=== PATIENT | female | born 1955 | race African-American/Black ===

== ENCOUNTER 2019-03-09 22:00 | Inpatient (IN) ==
[2019-03-09] MEDS ORDERED: ASPIRIN PO ONE (22:19)
[2019-03-09 22:53] LABS: BASO# 0.04 X1000 (0.0-0.2); BASO% 0.9 % (0.0-0.8); EOS# 0.03 X1000 (0.0-0.7); EOS% 0.7 % (0.0-10.0); HEMATOCRIT 35.7 % (37.0-47.0); HEMOGLOBIN 10.3 g/dL (12.0-16.0); LYMPH# 0.62 X1000 (1.2-3.4); LYMPH% 14.4 % (20.5-51.1); MCH 25.7 PG (27-31); MCHC 28.9 g/dL (33-37); MONO# 0.59 X1000 (0.11-0.59); MONO% 13.7 % (1.7-9.3); MPV 10.7 FL (7.4-10.4); NEUT# 3.04 X1000 (1.4-6.5); NEUT% 70.3 % (42.2-75.2); PLT 357 X1000 (130-400); RBC 4.01 XMIL (4.2-5.4); RDW 20.8 % (11.5-14.5); WBC 4.32 X1000 (4.8-10.8)
[2019-03-09 22:58] LABS: INR 1.13; PROTIME 15.4 Seconds (11.0-16.0)
[2019-03-09 22:59] LABS: PTT 30.6 Seconds (22.3-41.8)
[2019-03-09 23:10] LABS: ALBUMIN 3.9 g/dL (3.5-5.0); CALCIUM 8.8 mg/dL (8.8-10.2); CREATININE 1.3 mg/dL (0.5-0.9); POTASSIUM 4.2 mmol/L (3.5-5.1); TOTAL BILIRUBIN 3.04 mg/dL (0.20-1.00); TOTAL PROTEIN 7.7 g/dL (6.3-8.3)
[2019-03-10] MEDS ORDERED: HEPARIN IV ONE (00:20)
--- NOTE | 2019-03-10 04:18 | PROVIDER DOCUMENTATION ---
This chart was entered by Erik Cintron Scribe, acting as scribe for Trey Odom MD. HPI-Respiratory General - General Chief Complaint: Shortness of Breath Stated Complaint: CHF/SOB Time Seen by Provider: 03/09/19 22:30 Source: patient Allergies/Adverse Reactions: Patient Allergies Allergy/AdvReac Type Severity Reaction Status Date / Time levofloxacin [From Levaquin] Allergy Mild ITCHING Verified 03/10/19 01:23 Home Medications: Home Medication List Medication Instructions Recorded Confirmed Last Taken Type Albuterol 2.5MG/Ipratrop 0.5MG 3 ml INH Q4H PRN PRN 03/10/19 03/10/19 03/09/19 History [Duoneb] Amiodarone [Cordarone] 200 mg PO DAILY 03/10/19 03/10/19 03/09/19 History Levothyroxine [Synthroid] 75 microgm PO DAILY 03/10/19 03/10/19 03/09/19 History Metolazone 5 mg PO DAILY 03/10/19 03/10/19 03/08/19 History Potassium Chloride 20 meq PO DIRECTED PRN PRN 03/10/19 03/10/19 1 Week Ago History ~03/03/19 Torsemide 100 mg PO DAILY 03/10/19 03/10/19 03/08/19 History Trazodone [Desyrel] 25 mg PO HS PRN PRN 03/10/19 03/10/19 03/07/19 History - History of Present Illness-Resp Nature of Presenting Problem: Pt is a 63 y/o F presents to the ED with SOB and weakness. She says she cant walk from her bedroom to the bathroom. Pt says the SOB worsened today. She reports a hx of CHF. Pt denies CHF. Severity in ED: reports: severe Onset/Duration: reports: 24 hours ago Timing: reports: still present, getting worse Cough Quality/Degree: reports: no cough Current Respiratory Medication Therapy: Initiated none Modifying Factors: improves with: exertion Associated Symptoms: reports: shortness of breath. denies: cough, fever/chills, headache, muscle/bodyaches, wheezing Similar Symptoms Previously?: No Recently seen or treated by another doctor?: No Review of Systems - Adult - REVIEW OF SYSTEMS - ADULT Constitutional: reports: other (weakness). denies: chills, fever Eyes: reports: no symptoms reported Ears, Nose, Mouth & Throat: denies: ear pain, throat pain Cardiovascular: denies: chest pain, edema Respiratory: reports: shortness of breath. denies: cough, wheezing Gastrointestinal: denies: abdominal pain, nausea, vomiting Genitourinary: denies: dysuria, discharge Musculoskeletal: denies: back pain, neck pain Integumentary: reports: no symptoms reported Neurological: denies: dizziness/vertigo, headache/migraines, slurred speech, syncope Psychiatric: reports: no symptoms reported Endocrine: reports: no symptoms reported Hematologic/Lymphatic: reports: no symptoms reported Allergic/Immunologic: reports: no symptoms reported All Other Systems: Reviewed and Negative Past History - Adult - PAST MEDICAL HISTORY-ADULT Review of Records: reports: Old Records Reviewed, Nursing Assessment Review, Medications Reviewed Major Childhood Illnesses: reports: denies history Cardiovascular: reports: A-Fib, CHF, HTN Respiratory: reports: COPD, sleep apnea Gastrointestinal: reports: denies history Obstetrical/Gynecological: reports: denies history Genitourinary: reports: denies history Musculoskeletal: reports: denies history Neurological: reports: denies history Psychiatric: reports: anxiety Endocrine/Immune: reports: Diabetes Other Conditions: reports: denies history - PRIOR SURGERIES/PROCEDURES Surgical/Procedure History: reports: - IMMUNIZATION STATUS Childhood Immunizations: See Nurse Assessment Flu Vaccine: See Nurse Assessment - FAMILY HISTORY Family History: reviewed, not pertinent - SOCIAL HISTORY Smoking: non-smoker, greater than 1 pack/day Substance Use: none/never Living Situation: family Physical Exam-General - PHYSICAL EXAM-ADULT Initial Vital Signs Reviewed: Yes - CONSTITUTIONAL General Appearance: negative: appears well (ill in appearance) - EYES Eyes: PERRL/EOMI, pink conjunctivae - HEAD, EARS, NOSE, MOUTH & THROAT HENMT: moist mucous membranes, normal ENT inspection, pharynx normal - NECK Neck: full range of motion. negative: normal inspection (JVD) - RESPIRATORY Respiratory: lungs clear, normal breath sounds, no pleuratic chest pain, no respiratory distress, no accessory muscle use - CARDIOVASCULAR Cardiovascular: normal peripheral pulses, tachycardia - GASTROINTESTINAL (ABDOMEN) Abdominal Exam: normal bowel sounds, non tender, soft - MUSCULOSKELETAL Back Exam: no CVA tenderness, no vertebral tenderness Extremity: pedal edema (3+). negative: normal inspection (bilateral lower extremioty change in color) - SKIN Integumentary: normal color, normal turgor, warm/dry - NEUROLOGIC Neurologic: grossly normal, no motor/sensory deficits - PSYCHIATRIC Psych/Mental Status: normal mood/affect, normal thought content, normal thought process, oriented x 3 - HEART Score HEART Score: History: Highly Suspicious HEART Score: ECG: Significant ST-Deviation HEART Score: Age: 45-65 Years HEART Score: Risk Factors for Atherosclerotic Disease: 1 or 2 Risk Factors HEART Score: Troponin: < or = Normal Limit Total HEART Score:: 6 Progress - PLAN OF CARE/RESULTS Progress/Plan/Lab Results: Vital Signs - 8 hr 03/09/19 22:11 03/10/19 00:11 03/10/19 00:14 Temperature 98.1 F Pulse Rate 117 H 116 H Respiratory Rate 22 20 Blood Pressure 96/67 114/87 O2 Sat by Pulse Oximetry 91 L 88 L 95 03/10/19 00:20 03/10/19 00:30 03/10/19 00:33 Temperature Pulse Rate 116 H 116 H 116 H Respiratory Rate 19 28 H 27 H Blood Pressure 101/74 O2 Sat by Pulse Oximetry 94 L 94 L 94 L 03/10/19 00:40 03/10/19 00:50 03/10/19 01:00 Temperature Pulse Rate 117 H 116 H 115 H Respiratory Rate 21 21 25 H Blood Pressure O2 Sat by Pulse Oximetry 94 L 94 L 95 03/10/19 01:02 03/10/19 01:10 03/10/19 01:15 Temperature Pulse Rate 114 H 115 H 115 H Respiratory Rate 13 25 H 16 Blood Pressure 96/76 96/76 O2 Sat by Pulse Oximetry 95 95 95 03/10/19 01:20 03/10/19 01:30 03/10/19 01:32 Temperature Pulse Rate 115 H 116 H 115 H Respiratory Rate 19 34 H 19 Blood Pressure 106/81 O2 Sat by Pulse Oximetry 95 95 94 L 03/10/19 01:40 03/10/19 01:50 03/10/19 02:00 Temperature Pulse Rate 115 H 115 H 115 H Respiratory Rate 30 H 22 19 Blood Pressure O2 Sat by Pulse Oximetry 94 L 96 94 L 03/10/19 02:02 03/10/19 02:10 03/10/19 02:20 Temperature Pulse Rate 115 H 115 H 114 H Respiratory Rate 28 H 29 H 35 H Blood Pressure 102/87 O2 Sat by Pulse Oximetry 95 93 L 88 L 03/10/19 02:31 03/10/19 02:32 03/10/19 02:40 Temperature Pulse Rate 115 H 115 H 115 H Respiratory Rate 26 H 21 30 H Blood Pressure 112/84 O2 Sat by Pulse Oximetry 83 L 92 L 96 03/10/19 02:50 03/10/19 03:00 03/10/19 03:03 Temperature Pulse Rate 115 H 116 H 115 H Respiratory Rate 28 H 24 28 H Blood Pressure 114/78 O2 Sat by Pulse Oximetry 95 92 L 90 L 03/10/19 03:10 Temperature Pulse Rate 116 H Respiratory Rate 21 Blood Pressure O2 Sat by Pulse Oximetry 97 Laboratory Results - last 24 hr 03/09/19 03/09/19 03/09/19 22:36 22:36 22:36 WBC 4.32 L RBC 4.01 L Hgb 10.3 L Hct 35.7 L MCV 89.0 MCH 25.7 L MCHC 28.9 L RDW Std Deviation 20.8 H Plt Count 357 MPV 10.7 H Neut % (Auto) 70.3 Lymph % (Auto) 14.4 L [place] % (Auto) 13.7 H Eos % (Auto) 0.7 Baso % (Auto) 0.9 H Neut # (Auto) 3.04 Lymph # (Auto) 0.62 L [place] # (Auto) 0.59 Eos # (Auto) 0.03 Baso # (Auto) 0.04 PT INR PTT (Actin FS) Sodium 140 Potassium 4.2 Chloride 97 L Carbon Dioxide 29 Anion Gap 14 BUN 40 H Creatinine 1.3 H Estimated GFR/1.73 m2 50 BUN/Creatinine Ratio 31 Glucose 148 H Calculated Osmolality 292 Calcium 8.8 Total Bilirubin 3.04 H AST 13 ALT 9 L Alkaline Phosphatase 212 H Creatine Kinase 46 Troponin T Tyi-D-Xbaxehwlnww Pept 2678 H Total Protein 7.7 Albumin 3.9 Globulin 3.8 Albumin/Globulin Ratio 1.0 03/09/19 03/09/19 22:36 22:36 WBC RBC Hgb Hct MCV MCH MCHC RDW Std Deviation Plt Count MPV Neut % (Auto) Lymph % (Auto) [place] % (Auto) Eos % (Auto) Baso % (Auto) Neut # (Auto) Lymph # (Auto) [place] # (Auto) Eos # (Auto) Baso # (Auto) PT 15.4 INR 1.13 PTT (Actin FS) 30.6 Sodium Potassium Chloride Carbon Dioxide Anion Gap BUN Creatinine Estimated GFR/1.73 m2 BUN/Creatinine Ratio Glucose Calculated Osmolality Calcium Total Bilirubin AST ALT Alkaline Phosphatase Creatine Kinase Troponin T 0.029 Hvl-L-Eadfevjyoaa Pept Total Protein Albumin Globulin Albumin/Globulin Ratio Orders Category Date Time Status Cardiac Monitoring DIRECTED Care 03/09/19 22:20 Active Oxygen Therapy- ED Nursing DIRECTED Care 03/09/19 22:20 Active Saline Loc NOW Care 03/09/19 22:20 Active CHEST-PORTABLE [RAD] Stat Exams 03/09/19 22:34 Taken CBC WITH ELECTRONIC DIFF [HEME] Stat Lab 03/09/19 22:36 Completed CK PROFILE [SP CHEM] Stat Lab 03/09/19 22:36 Completed COMPREHENSIVE METABOLIC PANEL [CHEM] Stat Lab 03/09/19 22:36 Completed PRO B-NATRIURETIC PEPTIDE Stat Lab 03/09/19 22:36 Completed PROTIME WITH INR [COAG] Stat Lab 03/09/19 22:36 Completed PTT [COAG] Stat Lab 03/09/19 22:36 Completed TROPONIN T Stat Lab 03/09/19 22:36 Completed URINALYSIS [URINALYSIS] Stat Lab 03/09/19 22:33 Uncollected Aspirin Med 03/09/19 22:19 Discontinued 325 mg PO NOW ONE Heparin Med 03/10/19 00:20 Discontinued 5,000 unit IV NOW ONE CP/SOB/Palp >45 yrs of Age Stat Oth 03/09/19 22:19 Ordered EKG [EKG] Stat Ther 03/09/19 22:20 Ordered EKG [EKG] Stat Ther 03/09/19 22:33 Ordered Result Diagrams: 03/09/19 22:36 03/09/19 22:36 - EKG 1 Time of EKG reading by physician:: 22:23 EKG Read and Signed by:: Trey Odom EKG Interpretation (*Must complete 3 of following elements*): Abnormal Rate: 117 Rhythm: A-flutter with 2:1 AV conduction QRS: other (Low voltage QRS) Comments: Prolonged QT - Acute PR/STEMI - CONSULTS/PCP/HOSPITALIST Notification #1 *Consult/PCP/Hospitalist*: [facility] Time Discussed: 22:37 Reason/Comments: Transfer for Acute PR Consult Disposition: other ([facility]) #2 Consult: [facility] Time Discussed: 22:57 Consult Disposition: other (Reports No STEMI and reports work patient up there and call them if needed.) #3 Consult: Dr Coleman Time Discussed: 04:17 Consult Disposition: Will see in ED, Admit Departure - Departure Date of Disposition Decision: 03/10/19 Time of Disposition Decision: 04:16 DIAGNOSIS: CHF exacerbation Disposition: ADMITTED INPATIENT 09 Certified Medical Emergency: Emergent Condition: Fair - Critical Care Note This patient required my direct & personal management of CC.: No Attestation - Physician/ RASHAWN Attestation Patient care was provided by Advanced Practice Provider:: No The physician spent face to face time with patient:: Yes Advanced Practice Provider documentation review:: Supervising physician onsite and consulted in the evaluation and care of this patient. The physician did have a face to face encounter with the patient. This chart was documented by the indicated scribe, (Erik Cintron Scribe) and accurately reflects the services I performed and decisions made by me, Trey Odom MD, as attested by the provider's signature.
[2019-03-10] MEDS ORDERED: LASIX IV ONE (05:02)
--- NOTE | 2019-03-10 06:24 | Diag Imaging Result Doc PS360 ---
CHEST-PORTABLE - 03/09/2019 INDICATION: cp COMPARISON: 01/15/2018 FINDINGS: There is severe cardiomegaly. There is mild pulmonary vascular congestion. There is some patchy bibasilar atelectasis. No significant infiltrates or edema. No large pleural effusion. IMPRESSION: Cardiomegaly and pulmonary vascular congestion. Patchy bibasilar atelectasis. Electronically signed by Gregory Wall 03/10/2019 6:22 AM
[2019-03-10 06:25] LABS: URINE SOURCE CATH
--- NOTE | 2019-03-10 06:33 | HISTORY AND PHYSICAL ---
PRIMARY CARE PROVIDER: None. ICE PLATFORM SUPERVISOR: Dr. Fox. CARE WORKER: Dr. Queen. CHIEF COMPLAINT: Shortness of breath. HISTORY OF PRESENT ILLNESS: Ms. Flores is a 63-year-old female, well known to our hospitalist service, who carries a past medical history of congestive heart failure, COPD on home O2, diabetes mellitus type 2, hypertension, atrial fibrillation, who reported to the ED after an acute onset of shortness of breath this afternoon, she was unable to make it from her bed to the bathroom. She had to be assisted inside from the front porch and she just laid across the bed. She states that she has gained weight, she does not know how much. She does have increase in her bilateral lower extremities, she states that they are swollen more than her usual. She states she normally has really skinny legs. She was positive for abdominal fullness. Positive for palpitations. She states she did not have any chest pain per se, but when this acute onset of shortness of breath came on, she felt like her chest would explode secondary to not being able to take in any air. She was brought into the ED by her family. Workup showed an elevated proBNP and acute kidney injury, slight elevation in troponin. I believe initially the ED called [facility]. However, they declined as patient was not a STEMI, and wanted her to continue treatment and workup. She was given 5000 unit bolus of insulin IV as well as full-dose aspirin. The patient is still remained short of breath and unable to speak in full sentences. She has bilateral rales in the bases. We will give her a dose of IV Lasix now, insert a Blackburn catheter, and admit her to [facility] for further evaluation and treatment. PAST MEDICAL HISTORY: 1. Congestive heart failure. 2. Diabetes type 2. 3. COPD on home O2 at 2 L. The patient does state at times she does have to go up to 3 L. 4. Hypertension. 5. Atrial fibrillation. PAST SURGICAL HISTORY: . FAMILY HISTORY: Congestive heart failure and diabetes. SOCIAL HISTORY: She lives at home. She has a daughter who stays with her. She uses a walker to get around. She denies any tobacco, alcohol, or illicit drug use. ALLERGIES: Levofloxacin, causes itching. HOME MEDICATIONS: 1. DuoNeb 3 mL inhaled q.4 hours p.r.n. 2. Amiodarone 200 mg p.o. daily. 3. Synthroid 75 mcg p.o. daily. 4. Metolazone 5 mg p.o. daily. 5. Potassium chloride 20 mEq p.o. as directed p.r.n. 6. Torsemide 100 mg p.o. daily. 7. Desyrel 25 mg p.o. at bedtime p.r.n.. REVIEW OF SYSTEMS: A 14-point review of systems completely negative except for those mentioned in HPI. She denies any cough, fever, chills, nausea, vomiting, or diarrhea, dizziness or syncopal episodes. PHYSICAL EXAMINATION: VITAL SIGNS: Temperature is 98.2 degrees, heart rate 112, respirations 19, blood pressure 115/87, O2 sat is 94% on 3 L nasal cannula. GENERAL: Ms. Flores is a pleasant, 63-year-old female who is lying on her left side in the stretcher, in no acute distress. However, when she started talking, she could not talk in full sentences for being short of breath. HEENT: Atraumatic, normocephalic. PERRL. NECK: Supple. Trachea midline. CARDIOVASCULAR: Irregularly irregular rhythm. S1, S2 appreciated. No murmurs, gallops, or rubs. RESPIRATORY: Lung sounds decreased in all lung parkinson. She does have fine crackles in the bases. ABDOMEN: Obese, soft, tender in the right upper quadrant upon palpation. EXTREMITIES: Trace pitting edema to bilateral lower extremities. SKIN: Warm, dry, and intact. DIAGNOSTIC DATA: Chest x-ray has not resulted, but does appear to have evidence of pulmonary edema as well as cardiomegaly. Still awaiting official over read. EKG showed atrial flutter 2:1 AV conduction. LABORATORY DATA: White count 4, hemoglobin and hematocrit 10 and 35, platelet count of 357,000. Sodium 140, potassium 4.2, BUN 40, creatinine 1.3. Blood glucose is 148, T bilirubin is 3.04, AST 13, ALT 9, alkaline phosphatase 212, CK 46, troponin 0.029. ProBNP is 2678. ASSESSMENT/PLAN: 1. Acute congestive heart failure exacerbation, probably systolic and diastolic in nature. She does have a history of pulmonary hypertension and sleep apnea, for which she follows Neurology. Will continue with gentle diuresis as the patient does have acute kidney injury. Continue to trend daily weights, in's and out's, O2 per protocol. Placed her on a 2 g sodium diet. Monitor on telemetry. Monitor electrolytes closely. 2. Mild elevation in troponin. We will continue to trend. The patient adamantly denies chest pain. 3. Acute kidney injury on probable chronic kidney disease. We will gently diurese her. Continue to trend her labs. 4. History of atrial fibrillation, atrial flutter. We will continue the patient on her amiodarone. Heparin for deep venous thrombosis prophylaxis. 5. Chronic obstructive pulmonary disease, on home O2. Did not appreciate any wheezes. 6. Hypertension. 7. Type 2 diabetes. Continue pattern blood sugars with sliding scale. Further recommendation to follow physician evaluation, laboratory and diagnostic data. Dictated by MO Lawrence for Michael Coleman MD I have perfomed a face to face diagnostic evaluation. Labs/ Xrays - reviewed. Exam- Chest- bibasilar rales. CV- regular A/P- CHF Exacerbation- Admit, gentle diuresis with lasix. Cardiology consult. Dr. Coleman cc: MD Radu Bustamante MD William D. Denney, MD [facility] HOSPITALRadha
[2019-03-10 07:05] LABS: BILIRUBIN URINE SMALL (NEGATIVE); BLOOD URINE NEGATIVE (NEGATIVE); COLOR YELLOW; GLUCOSE URINE NEGATIVE (NEGATIVE); KETONE URINE NEGATIVE (NEGATIVE); LEUKOCYTES URINE SMALL (NEGATIVE); NITRITE URINE NEGATIVE (NEGATIVE); PH URINE 5.5; PROTEIN URINE TRACE mg/dL (NEGATIVE); SP GRAVITY URINE 1.018; TURBIDITY URINE HAZY (CLEAR); UROBILINOGEN URINE 6 mg/dL (NORMAL)
--- NOTE | 2019-03-10 07:07 | EKG Report ---
Test Performed on : 03/10/2019 06:59:56 AM Test Reason : afib/flutter Blood Pressure : / mmHG Vent. Rate : 113 BPM Atrial Rate : 226 BPM P-R Int : 000 ms QRS Dur : 096 ms QT Int : 358 ms P-R-T Axes : 000 156 -06 degrees QTc Int : 491 ms Atrial flutter. with 2:1 AV conduction. Right axis deviation Low voltage QRS Cannot rule out Anteroseptal infarct (cited on or before 02-OCT-2017) Abnormal ECG When compared with ECG of 09-MAR-2019 22:23, (Unconfirmed) QRS axis shifted right Criteria for Inferior infarct are no longer present ST now depressed in Inferior leads ST no longer elevated in Anterior leads Confirmed by Travis HECTOR, Kali Rankin ([id number]) on 03/11/2019 8:46:10 AM
[2019-03-10 07:08] LABS: UR EPITHELIAL CELLS <10 /HPF (<10); URINE BACTERIA 3+ /HPF; URINE WBC <10 /HPF (<10)
--- NOTE | 2019-03-10 07:29 | EKG Report ---
Test Performed on : 03/09/2019 10:23:49 PM Test Reason : sob Blood Pressure : / mmHG Vent. Rate : 117 BPM Atrial Rate : 234 BPM P-R Int : 000 ms QRS Dur : 096 ms QT Int : 390 ms P-R-T Axes : 000 -03 075 degrees QTc Int : 544 ms Atrial flutter. with 2:1 AV conduction. Low voltage QRS Inferior infarct (cited on or before 19-OCT-2017) Cannot rule out Anteroseptal infarct (cited on or before 02-OCT-2017) Prolonged QT ACUTE OR / STEMI Abnormal ECG When compared with ECG of 16-JAN-2018 05:14, Significant changes have occurred Unconfirmed Result
[2019-03-10] MEDS: HUMALOG SUBQ SCH ×4 (07:41→20:37)
[2019-03-10 07:55] LABS: BASO# 0.06 X1000 (0.0-0.2); BASO% 1.1 % (0.0-0.8); EOS# 0.03 X1000 (0.0-0.7); EOS% 0.6 % (0.0-10.0); HEMATOCRIT 36.4 % (37.0-47.0); HEMOGLOBIN 10.4 g/dL (12.0-16.0); LYMPH# 0.99 X1000 (1.2-3.4); LYMPH% 18.8 % (20.5-51.1); MCH 25.2 PG (27-31); MCHC 28.6 g/dL (33-37); MCV 88.1 FL (81-99); MONO# 0.58 X1000 (0.11-0.59); MPV 10.8 FL (7.4-10.4); NEUT# 3.61 X1000 (1.4-6.5); NEUT% 68.5 % (42.2-75.2); PLT 375 X1000 (130-400); RBC 4.13 XMIL (4.2-5.4); RDW 20.9 % (11.5-14.5); WBC 5.27 X1000 (4.8-10.8)
--- NOTE | 2019-03-10 08:21 | Diag Imaging Result Doc PS360 ---
CHEST-PORTABLE - 03/10/2019 INDICATION: follow up COMPARISON: 03/09/2019 FINDINGS: Stable significant cardiomegaly. Stable pulmonary vascular congestion. Stable minimal atelectasis or infiltrate in the lung bases. IMPRESSION: No change from prior. Electronically signed by Gregory Wall 03/10/2019 8:19 AM
[2019-03-10] MEDS: CORDARONE PO SCH (08:36)
[2019-03-10] MEDS: PRILOSEC PO SCH (08:36)
[2019-03-10] MEDS: SYNTHROID PO SCH (08:36)
[2019-03-10] MEDS: ZAROXOLYN PO SCH (08:36)
[2019-03-10] MEDS: HEPARIN SUBQ SCH ×2 (08:36→20:37)
[2019-03-10 08:39] LABS: CALCIUM 8.7 mg/dL (8.8-10.2); CREATININE 1.3 mg/dL (0.5-0.9); MAGNESIUM 2.2 mg/dL (1.5-2.7); POTASSIUM 4.1 mmol/L (3.5-5.1)
[2019-03-10 08:49] LABS: T4 8.52 ug/dL (4.60-12.00)
[2019-03-10 08:55] LABS: TSH 5.8 uIUmL (0.27-4.20)
[2019-03-10] MEDS ORDERED: LASIX IV SCH (09:00)
[2019-03-10] MEDS: XANAX PO SCH ×2 (09:11→20:37)
--- NOTE | 2019-03-10 09:12 | PROGRESS NOTE ---
DATE: 03/10/2019 SUBJECTIVE: This patient is sitting in bed, and she is having shortness of breath. As per the patient, she really started feeling short of breath yesterday. She was admitted at least 3 times last year for this condition. She is following with Dr. Ruddy Maya as an outpatient. On the other hand, she feels anxious, and it looks like she is depressed as well. I will give her a really low dose of Xanax today to see if that helps. She wants to , but she does not have a plan or is suicidal. Probably once her condition resolves, I will ask Psychiatry to evaluate this patient because probably they need to see her as an outpatient or inpatient. OBJECTIVE: Vital Signs: Temperature 98 degrees, pulse 112, respiratory rate 16, blood pressure 108/79, oxygen saturation 96 on 4 L of nasal cannula. HEENT: Head normocephalic. No trauma. PERRLA. Neck: Supple. No JVD. No masses. Central trachea. Chest: Decreased breath sounds globally with some rales at the bases. Abdomen: Soft, mildly distended, mild generalized tenderness to palpation. Positive bowel sounds. Extremities: Trace edema. No clubbing, no cyanosis. Neurological: The patient is alert and oriented x3. No focal neurological deficits. Anxiety. LABORATORY DATA: WBC 5.2, hemoglobin 10.4, hematocrit 36.4, platelets 375,000. Sodium 141, potassium 4.1, chloride 100, bicarbonate 27, BUN 41, creatinine 1.3, glucose 139, calcium 8.7. Troponins negative x2. ASSESSMENT AND PLAN: 1. Combined congestive heart failure exacerbation, systolic and diastolic. She does have pulmonary hypertension and sleep apnea. We will continue with diuresis. She does have some mild kidney dysfunction. Continue with oxygen supplementation, low-salt diet. 2. Acute kidney injury on probably chronic kidney disease. We need to continue diuresing this patient gently. Will continue to monitor this patient closely. 3. History of atrial fibrillation/atrial flutter. We will continue with amiodarone, rate control. I am not sure why this patient is not on anticoagulation. Will put her on heparin subcutaneously for prophylaxis. I will wait for Cardiology recommendations. 4. Chronic obstructive pulmonary disease, on home oxygen. No wheezing today. Continue with breathing treatment as needed. 5. Hypertension. Continue to monitor. 6. Type 2 diabetes. Continue pattern of blood sugar and sliding scale insulin. 7. Anxiety and likely depression. I will add just a small dose of Xanax to this patient, 0.125 twice a day, to see how she does, and probably at the end of this hospitalization, once this patient is feeling better, I will get Psychiatry Department to evaluate this patient because probably she needs to be evaluated as an outpatient. cc: Shant Walls MD
[2019-03-10] MEDS: COZAAR PO SCH (11:06)
--- NOTE | 2019-03-10 11:27 | CARDIOLOGY CONSULTATION ---
DATE: 03/10/2019 CHIEF COMPLAINT ON PRESENTATION: Shortness of breath for around 2 days. HISTORY OF PRESENT ILLNESS: Ms. Flores is a 63-year-old black female with a history of systolic heart failure, last seen by Dr. Fox in July of 2018. She reports compliance with her medications. However, she apparently has had a history of poor compliance in the past. She has not had any heart racing. She denies any overt chest pain. She reports orthopnea, as well as lower extremity edema. She denies any specific sodium indiscretion. PAST MEDICAL HISTORY: 1. Significant for congestive heart failure. The last stress test I have on file was from October 2017, showing an EF of 43%. RV enlargement is demonstrated. No obvious ischemic changes on that study. Last echo in November of 2017 with an ejection fraction of around 40 to 45 percent. She did have evidence for a small PFO on that study. However, no shunt, suggesting it was very small. 2. Paroxysmal atrial fibrillation. Currently, the patient is on amiodarone. I do not see any specific under indications to anticoagulation, but it does not appear that she has ever been on this. 3. COPD on home oxygen therapy. 4. Hypertension. 5. Diabetes. 6. Hypothyroidism. 7. Sleep apnea. SOCIAL HISTORY: Lives at home. Daughter stays with her. She uses a walker for most ambulation. No current tobacco, alcohol or illicit drugs. FAMILY HISTORY: Significant for CHF, as well as diabetes. REVIEW OF SYSTEMS: A 10 system review of systems is negative, except for those things mentioned in the HPI. PHYSICAL EXAMINATION: Vital Signs: She is afebrile. Her most recent heart rate was 112. Blood pressure 108/79. We have very limited I and O data. General: Generally, she is in no acute distress. HEENT: Oropharynx is moist. Poor dentition. Eye examination is pink conjunctivae, white sclerae. Neck: Examination shows no obvious thyromegaly or thyroid tenderness. Cardiovascular: She sounds to be in a regular rate and rhythm. She has no obvious murmurs. She has no S3. She has 1+ bilateral lower extremity edema, and warm and well-perfused extremities. Chest: Her chest exam sounds clear to auscultation bilaterally, but she had poor effort. Abdomen: Soft, nontender. No obvious organomegaly. Skin: Exam is warm and dry throughout without any rashes. Neurological: She is moving all extremities well. She has no obvious lateralizing deficits. PERTINENT DATA: She had a chest x-ray performed on the thirtieth showing cardiomegaly and pulmonary vascular congestion. Repeat chest x-ray today shows essentially stable pulmonary vascular congestion. Her initial EKG on presentation has difficult to discern P-waves. She appeared to be in a relatively regular rhythm at around 117 beats per minute. There was a significant burden of artifact on this study suggestive of possible atrial flutter. That was reviewed by me. Followup EKG today at 0659 hours; this one seems more suggestive of atrial flutter based on the lead 3 characteristics. Rate was 113 beats per minute. Her laboratory data shows a white count of 5.2, hematocrit 36, platelet count of 375. Her sodium is 141, potassium 4.1, BUN 41, creatinine 1.3. Cardiac enzymes negative. ProBNP is 2678. ASSESSMENT: Ms. Flores is a 63-year-old black female with a history of atrial fibrillation/flutter, systolic heart failure. PLAN: We will continue to diurese the patient. I have added in a low dose of ARB. We will consider beta-rossana addition tomorrow. We will continue on amiodarone for the time being. We will likely consider adding an anticoagulation in the next couple of days. We will recheck an echo as one has not been done in quite some time on her. For now, we will continue with diuresis. cc: Sachin Maciel MD
[2019-03-10] MEDS: ZOFRAN IV PRN (15:05)
[2019-03-10] MEDS: LASIX IV SCH (17:11)
--- NOTE | 2019-03-10 23:11 | ECHO REPORT ---
ORDER DATE: 03/10/2019 SUMMARY: 1. Technically difficult study due to limited acoustic window quality. Intravenous echo contrast agent Optison was utilized to enhance endocardial definition. 2. Aortic valve was without evidence of structural abnormality and opens adequately on 2- dimensional images. Peak gradient across aortic valve is less than 10 mmHg. Mitral and tricuspid valves are without evidence of structural abnormality while pulmonic valve was not well demonstrated. There is mild mitral regurgitation and moderate tricuspid regurgitation. Estimated systolic PA pressure by Doppler is approximately 50 mmHg, suggesting moderate pulmonary hypertension. Aortic root is normal in size. 3. Moderate to severe left ventricular enlargement is demonstrated with normal wall thickness. Estimated left ejection fraction approximately 15 to 20 percent in the setting of severe global hypokinesis. There is some septal flattening demonstrated suggesting right ventricular pressure/volume overload. Left atrium is severely enlarged. The right atrium is severely enlarged. The right ventricle is severely enlarged with reduced right ventricular systolic function. 4. No pericardial effusion. 5. Appearance of inferior vena cava suggests elevated central venous pressure. cc: MD Marixa Barrera PA
[2019-03-11] MEDS: DUONEB (A & A) INH PRN ×3 (01:35→21:40)
[2019-03-11 06:16] LABS: CALCIUM 8.9 mg/dL (8.8-10.2); MAGNESIUM 2.4 mg/dL (1.5-2.7); POTASSIUM 4.4 mmol/L (3.5-5.1)
[2019-03-11] MEDS: LASIX IV SCH ×2 (06:24→17:15)
[2019-03-11] MEDS: HUMALOG SUBQ SCH ×4 (06:36→20:49)
--- NOTE | 2019-03-11 08:10 | EKG Report ---
Test Performed on : 03/11/2019 07:09:31 AM Test Reason : chf, dyspnea Blood Pressure : / mmHG Vent. Rate : 094 BPM Atrial Rate : 220 BPM P-R Int : 000 ms QRS Dur : 098 ms QT Int : 410 ms P-R-T Axes : 000 013 048 degrees QTc Int : 512 ms Atrial flutter. with variable AV block. Low voltage QRS Cannot rule out Anteroseptal infarct (cited on or before 02-OCT-2017) Prolonged QT Abnormal ECG When compared with ECG of 10-MAR-2019 06:59, (Unconfirmed) QRS axis shifted left ST no longer depressed in Inferior leads Nonspecific T wave abnormality has replaced inverted T waves in Inferior leads Confirmed by Travis HECTOR, Kali Rankin ([id number]) on 03/11/2019 8:47:12 AM
--- NOTE | 2019-03-11 09:19 | PROGRESS NOTE ---
DATE: 03/11/2019 SUBJECTIVE: The patient is sitting up in the chair at the bedside, eating breakfast. She states that she feels better than she has in quite some time. She also states that she has an appetite today. OBJECTIVE: Vital Signs: Blood pressure is 79/46 manually on the right arm, 76/42 manually on the left arm, heart rates are staying between 100 to 106, respirations are 18, temperature is 97.8 degrees, with O2 saturation of 93% to 94% on 4 L nasal cannula. Cardiovascular: Regular rate and rhythm. S1 and S2 appreciated. No obvious murmurs. Extremities: She does have some pretibial edema bilaterally. Calves are nontender to palpation bilaterally. Peripheral pulses are palpable, about 1+ to all 4 extremities. Pulmonary: Breath sounds are clear with no increased work of breathing noted. Chest rises and falls symmetrically with respiration. Gastrointestinal: Abdomen is soft, nontender, nondistended with bowel sounds in all 4 quadrants. Skin: Warm and dry with no rashes or lesions noted. Neurologic: She is alert and oriented x3. LABORATORY DATA: Sodium 139, potassium 4.4, BUN is 49, with a creatinine of 2, with blood sugars ranging in the 120 to 160 range. ASSESSMENT: 1. Combined congestive heart failure exacerbation, systolic and diastolic, along with pulmonary hypertension and sleep apnea. 2. Acute kidney injury on chronic kidney disease. 3. History of atrial fibrillation with atrial flutter. 4. Chronic obstructive pulmonary disease, on continuous oxygen. 5. Hypertension. 6. Diabetes type 2. 7. Hypotension. PLAN: Will continue with her current regimen with the exception that we will hold her Cozaar as well as her Zaroxolyn as her creatinine has increased and her blood pressures are lower, although the patient does state that she takes her blood pressures at home and she stated that the top number is usually between 82 and 89. Of note, her urine output has been around 200 mL over the last [address] Sacihn Maciel, Cardiology, and discuss medications. Dictated by MO Campos for Shant Walls MD cc: MO Campos MD
[2019-03-11] MEDS: XANAX PO SCH ×2 (09:24→20:47)
[2019-03-11] MEDS: PRILOSEC PO SCH (09:24)
[2019-03-11] MEDS: SYNTHROID PO SCH (09:24)
[2019-03-11] MEDS: HEPARIN SUBQ SCH ×2 (09:25→20:49)
[2019-03-11] MEDS: CORDARONE PO SCH (09:25)
[2019-03-11] MEDS: DOBUTAMINE 500/D5W 500 MG/250 ML IV.SOLN IV SCH (14:43)
[2019-03-11] MEDS ORDERED: LASIX IV ONE (15:17)
[2019-03-11] MEDS: ZAROXOLYN PO SCH (15:20)
--- NOTE | 2019-03-11 18:43 | Diag Imaging Result Doc PS360 ---
CHEST-PORTABLE - 03/11/2019 INDICATION: chf COMPARISON: 03/10/2019 FINDINGS: Stable significant cardiomegaly and pulmonary vascular congestion. Stable small nonspecific infiltrate in the right lung base. No new infiltrates. IMPRESSION: No change from prior. Electronically signed by Gregory Wall 03/11/2019 6:41 PM
[2019-03-11] MEDS: TYLENOL PO PRN (20:04)
[2019-03-12 06:02] LABS: CALCIUM 8.7 mg/dL (8.8-10.2); CREATININE 1.9 mg/dL (0.5-0.9); MAGNESIUM 2.4 mg/dL (1.5-2.7)
[2019-03-12] MEDS: LASIX IV SCH ×2 (06:08→17:51)
[2019-03-12] MEDS: HUMALOG SUBQ SCH ×4 (07:06→21:42)
--- NOTE | 2019-03-12 07:58 | Diag Imaging Result Doc PS360 ---
EXAM: CHEST-PORTABLE HISTORY: SOB TECHNIQUE: Chest single view COMPARISON: 03/11/2019 FINDINGS: Cardiomegaly remains. There is pulmonary edema and appears to be a small left pleural effusion with basilar atelectasis. Otherwise the lungs are well expanded. IMPRESSION: Cardiomegaly with pulmonary edema and no interval improvement. Electronically signed by Maged Bullard 03/12/2019 7:56 AM
[2019-03-12] MEDS: HEPARIN SUBQ SCH ×2 (08:59→21:42)
[2019-03-12] MEDS: SYNTHROID PO SCH (08:59)
[2019-03-12] MEDS: CORDARONE PO SCH (08:59)
[2019-03-12] MEDS: COZAAR PO SCH (08:59)
[2019-03-12] MEDS: ZAROXOLYN PO SCH (08:59)
[2019-03-12] MEDS: XANAX PO PRN ×2 (09:02→21:38)
[2019-03-12] MEDS: PRILOSEC PO SCH (09:02)
[2019-03-12] MEDS: DUONEB (A & A) INH PRN ×3 (09:52→19:38)
--- NOTE | 2019-03-12 09:55 | PROGRESS NOTE ---
DATE: 03/12/2019 SUBJECTIVE: This patient is lying in bed. She is really tired today. Her blood pressure has been low, sometimes in the 70s. As per the patient, her blood pressure at home has been around 80 sometimes. She has been placed on dobutamine by Cardiology Department. So far, we have 1.2 L of negative balance. X-ray showed pulmonary edema. No interval improvement and also cardiomegaly. We will continue with the same management. OBJECTIVE: Vital Signs: Temperature 98.8 degrees, pulse 84, respiratory rate 19, blood pressure 100/53, and oxygen saturation 91% on a Venturi mask. HEENT: Head normocephalic. No trauma. PERRLA. Neck: Supple. She does have JVD in central trachea. Chest: Decreased breath sounds globally with some rales and crepitus at the bases. Abdomen: Soft. Generalized tenderness to palpation. Positive bowel sounds. Nondistended. Extremities: Trace edema. No clubbing. No cyanosis. Neurological: The patient is alert and oriented x3. No focal deficits. LABORATORY: Sodium 138, potassium 4, chloride 96, bicarbonate 30, BUN 57, creatinine 1.9, glucose 123, calcium 8.7, and magnesium 2.4. ASSESSMENT AND PLAN: 1. Combined CHF exacerbation, systolic and diastolic. She also does have pulmonary hypertension and sleep apnea. We will continue with diuresis. She does have some acute kidney injury. She has been placed on dobutamine. Cardiology Department on board. Continue with oxygen supplementation. Low-salt diet. 2. Acute kidney injury. We need to continue to monitor. Creatinine around the same compared with yesterday, decreased a little bit from 2.0 to 1.9 with urine output of 1.7 L. Negative balance of 1.2. We will monitor this patient closely. 3. History of atrial fibrillation/atrial flutter. Continue with the same management for now. She is not on anticoagulation, but we are starting the possibility of putting this patient on that. I will continue following the Cardiology's recommendations. Apparently, she has been noncompliant with the medications. 4. COPD on home oxygen. No wheezing. Continue with breathing treatment as needed and oxygen supplementation. 5. Hypertension. Actually, this patient's blood pressure has been low. We held the losartan because of her kidney dysfunction. We will monitor. 6. Type 2 diabetes. Continue with pattern of blood sugar and sliding scale insulin. 7. Anxiety, probably depression. She is getting a small dose of Xanax around 0.1 25 twice a day as needed for anxiety. I will continue with the same treatment. cc: Shant Walls MD
[2019-03-12] MEDS: DOBUTAMINE 500/D5W 500 MG/250 ML IV.SOLN IV SCH (16:52)
--- NOTE | 2019-03-12 19:09 | CARDIOLOGY PROGRESS NOTE ---
DATE: 03/12/2019 SUBJECTIVE: Ms Florse reports she feels a little bit better. She does have some diffuse pain that is present. PHYSICAL: Afebrile. Heart rate 78, blood pressure 116/97. Her I's and O's appears to have been net negative. She is total out 2.1 L with 4 voids not measured.General: She is in no acute distress. Cardiovascular: She sounds to be in a regular rate and rhythm. She has no murmur, she has no S3. She has trace bilateral lower extremity edema with warm and well perfused extremities. Chest: Sounds reasonably clear to auscultation bilaterally. She has no increased work of breathing. Abdomen: Soft, nontender. PERTINENT DATA: Her lab data shows a sodium 138, potassium 4, BUN 57, creatinine is 1.9, mag level is 2.4. Her creatinine yesterday was 2.0, proBNP yesterday was 3551. ASSESSMENT: Ms. Flores is a 63-year-old female who presented with evidence for heart failure. Interim echocardiogram has demonstrated an ejection fraction of 15 to 20 percent. PLAN: She has been placed on dobutamine yesterday. She seems to be diuresing. Her renal function has improved somewhat. Her blood pressure is improved as well. We will continue on current medications for the time being rechecking labs in the morning. cc: Sachin Maciel MD
[2019-03-12] MEDS: TYLENOL PO PRN (22:18)
[2019-03-13] MEDS: DUONEB (A & A) INH PRN ×6 (03:22→23:45)
[2019-03-13] MEDS ORDERED: BLISTEX MEDICATED BERRY LIP BALM TOP PRN (04:20)
[2019-03-13] MEDS: HUMALOG SUBQ SCH ×4 (06:14→21:48)
[2019-03-13] MEDS: LASIX IV SCH ×2 (06:17→18:23)
[2019-03-13 06:18] LABS: BASO# 0.01 X1000 (0.0-0.2); BASO% 0.2 % (0.0-0.8); EOS# 0.04 X1000 (0.0-0.7); EOS% 0.7 % (0.0-10.0); HEMATOCRIT 32.9 % (37.0-47.0); HEMOGLOBIN 9.3 g/dL (12.0-16.0); LYMPH# 0.53 X1000 (1.2-3.4); LYMPH% 9.8 % (20.5-51.1); MCH 25.1 PG (27-31); MCHC 28.3 g/dL (33-37); MCV 88.9 FL (81-99); MONO# 0.67 X1000 (0.11-0.59); MONO% 12.4 % (1.7-9.3); NEUT# 4.17 X1000 (1.4-6.5); NEUT% 76.9 % (42.2-75.2); PLT 331 X1000 (130-400); WBC 5.42 X1000 (4.8-10.8)
[2019-03-13 06:53] LABS: CALCIUM 8.4 mg/dL (8.8-10.2); CREATININE 1.6 mg/dL (0.5-0.9); MAGNESIUM 2.3 mg/dL (1.5-2.7); POTASSIUM 3.8 mmol/L (3.5-5.1)
[2019-03-13 07:14] LABS: LYMPHS 12 % (21-51); MONO 10 % (1-9); SEGS 78 % (42-75)
[2019-03-13] MEDS: COZAAR PO SCH (08:39)
[2019-03-13] MEDS: SYNTHROID PO SCH (08:47)
[2019-03-13] MEDS: PRILOSEC PO SCH (08:47)
[2019-03-13] MEDS: ZAROXOLYN PO SCH (08:47)
[2019-03-13] MEDS: HEPARIN SUBQ SCH ×2 (08:47→21:35)
[2019-03-13] MEDS: CORDARONE PO SCH (08:47)
[2019-03-13] MEDS: XANAX PO PRN ×2 (08:53→21:36)
--- NOTE | 2019-03-13 09:01 | PROGRESS NOTE ---
DATE: 03/13/2019 SUBJECTIVE: The patient is lying comfortably in bed. She is feeling a bit a little bit better compared with yesterday. Cardiology Department following this patient closely. We will continue with same management. OBJECTIVE: Vital Signs: Temperature 98 degrees, pulse 99, respiratory rate 20, blood pressure 124/61, oxygen saturation 96 on a Venturi mask, 15%. HEENT: Head normocephalic. No trauma. PERRLA. Neck: Supple. She does have JVD central trachea. Chest: Decreased breath sounds globally with some rales and crepitus at the bases. Abdomen: Soft. Generalized tenderness to palpation, but positive bowel sounds. It is nondistended. Extremities: Trace edema. No clubbing, no cyanosis. Neurological examination: The patient is alert and oriented x3. Generalized weakness, but no focal deficits. LABORATORY: WBC 5.4, hemoglobin 9.3, hematocrit 32.9, platelets 331. Sodium 140, potassium 3.8, chloride 94, bicarbonate 36. BUN 55, creatinine 1.6, glucose 131, calcium 8.4. ProBNP 2625. ASSESSMENT AND PLAN: 1. Combined congestive heart failure exacerbation, systolic and diastolic. She also has pulmonary hypertension and sleep apnea. We will continue with diuresis. She does have some acute kidney injury, but is getting better. She has been placed on dobutamine. Cardiology Department on board and following this patient closely. 2. Acute kidney injury. We have a negative balance of 3 liters, BUN and creatinine trending down. We will continue to monitor. 3. History of atrial fibrillation/atrial flutter. Continue with same management for now. She is not on anticoagulation at this moment, due to noncompliance apparently. 4. Chronic obstructive pulmonary disease on home oxygen, no wheezing today. Continue breathing treatment as needed and oxygen supplementation. 5. Hypertension. Actually, her blood pressure has been running low. We held the losartan due to her kidney dysfunction. We will monitor. 6. Type 2 diabetes. Continue the same management. 7. Anxiety, probably depression. Continue with a small dose of Xanax twice a day as needed for anxiety. We will continue with same management. cc: Shant Walls MD
--- NOTE | 2019-03-13 11:28 | Diag Imaging Result Doc PS360 ---
EXAM: CHEST-PORTABLE HISTORY: dyspnea TECHNIQUE: Portable chest single view COMPARISON: 03/12/2019 FINDINGS: The lungs are well expanded. The heart is enlarged. The vessels are distended. There are no infiltrates. No effusion identified. IMPRESSION: Cardiomegaly with pulmonary edema Electronically signed by Maged Bullard 03/13/2019 11:25 AM
[2019-03-13] MEDS: TYLENOL PO PRN (21:35)
[2019-03-14] MEDS: DUONEB (A & A) INH PRN ×6 (03:49→23:17)
[2019-03-14] MEDS: TYLENOL PO PRN (05:31)
[2019-03-14] MEDS: LASIX IV SCH ×2 (05:31→17:14)
[2019-03-14] MEDS: HUMALOG SUBQ SCH ×4 (06:14→21:27)
[2019-03-14 06:23] LABS: CALCIUM 8.8 mg/dL (8.8-10.2); CREATININE 1.4 mg/dL (0.5-0.9); POTASSIUM 4.1 mmol/L (3.5-5.1)
[2019-03-14] MEDS: MIRALAX PO SCH (08:29)
[2019-03-14] MEDS: PRILOSEC PO SCH (08:29)
[2019-03-14] MEDS: SYNTHROID PO SCH (08:29)
[2019-03-14] MEDS: HEPARIN SUBQ SCH ×2 (08:29→21:27)
[2019-03-14] MEDS: ZAROXOLYN PO SCH (08:29)
[2019-03-14] MEDS: CORDARONE PO SCH (08:29)
[2019-03-14] MEDS: XANAX PO PRN ×2 (08:36→22:56)
--- NOTE | 2019-03-14 08:48 | PROGRESS NOTE ---
DATE: 03/14/2019 SUBJECTIVE: Patient is resting in bed. She feels tired today. Cardiology department is following this patient closely. So far, we have a negative balance of 4.3 L since admission and 1.2 L negative in 24 hours. She has been having bowel movements but she is asking for a stool softener to help her out a little bit more. OBJECTIVE: Vital Signs: Temperature 97.3 degrees, pulse 108, respiratory rate 16, oxygen saturation 94 on a Venturi mask. HEENT: Head normocephalic. No trauma. PERRLA. Neck: Supple. She does have JVD. Central trachea. Chest: Decreased breath sounds globally with some rales and crepitus at the bases. Abdomen: Soft. Generalized tenderness to palpation, mostly at the level of the periumbilical area but positive bowel sounds. Extremities: Trace edema. No clubbing. No cyanosis. Neurological Examination: The patient is alert and oriented x3. She does have generalized weakness but no focal deficits. Laboratory: Sodium 139, potassium 4.1, chloride 93, bicarbonate 37, BUN 51, creatinine 1.4, glucose 123, calcium 8.8. ASSESSMENT AND PLAN: 1. Combined congestive heart failure exacerbation, systolic and diastolic. She also has pulmonary hypertension and sleep apnea. We will continue with diuresis. Her kidney function is improving. So far, we have a negative balance of 4.3 L since admission. Cardiology department is following this patient closely. We will continue to monitor. 2. Acute kidney injury. BUN and creatinine are improving slowly. We will continue to monitor. 3. History of atrial fibrillation/atrial flutter. Continue with the same management for now. She is not on anticoagulation at this moment. Cardiology department on board. 4. Chronic obstructive pulmonary disease, on home oxygen. No wheezing today. Continue breathing treatments and as needed oxygen supplementation. 5. Hypertension. Actually, her blood pressure has been running a little bit low and, as per the patient, sometimes her blood pressure at home is in the 80s. We will continue to monitor. Cardiology is following this patient closely. 6. Type 2 diabetes. Continue with the same management. 7. Anxiety and probably depression. Continue with a small dose of Xanax twice a day as needed for anxiety. We will continue with the same management. cc: Shant Walls MD
[2019-03-14] MEDS: COZAAR PO SCH (11:54)
[2019-03-14] MEDS: ZOFRAN IV PRN (14:48)
[2019-03-14] MEDS: DESYREL PO PRN (21:27)
[2019-03-15 03:26] LABS: ALLEN TEST YES; BE 13.3 mmoll (-3.0-3.0); BLOOD TYPE ARTERIAL; HCO3-(ACT) 35.2 mmoll (20.0-26.0); METHB 0.8 % (0.0-1.5); O2(CT) 13.4 mL/dL (15.0-23.0); O2HB 93.2 % (95.0-99.0); PO2(98.6) 69 mmHg (60-100); SAMPLE BLOOD; SAO2 95.9 % (95.0-100.0); THB 10.2 g/dL (11.5-17.4); pH(98.6) 7.37 (7.35-7.45)
[2019-03-15 03:28] LABS: MODALITY VENTIMASK
[2019-03-15 03:29] LABS: PCO2(98.6) 71 mmHg (35-45)
[2019-03-15] MEDS: DUONEB (A & A) INH PRN ×6 (03:37→23:15)
[2019-03-15] MEDS: LASIX IV SCH ×3 (04:52→17:19)
[2019-03-15 05:29] LABS: BASO# 0.03 X1000 (0.0-0.2); BASO% 0.6 % (0.0-0.8); EOS# 0.09 X1000 (0.0-0.7); EOS% 1.8 % (0.0-10.0); HEMATOCRIT 33.9 % (37.0-47.0); HEMOGLOBIN 9.6 g/dL (12.0-16.0); IMM GRAN# 0.02 X1000 (0.0-0.04); IMM GRAN% 0.4 % (0.0-0.5); LYMPH# 0.68 X1000 (1.2-3.4); LYMPH% 13.8 % (20.5-51.1); MCH 25.3 PG (27-31); MCHC 28.3 g/dL (33-37); MCV 89.2 FL (81-99); MONO# 0.63 X1000 (0.11-0.59); MONO% 12.8 % (1.7-9.3); MPV 10.9 FL (7.4-10.4); NEUT# 3.49 X1000 (1.4-6.5); NEUT% 70.6 % (42.2-75.2); PLT 352 X1000 (130-400); RDW 20.1 % (11.5-14.5); WBC 4.94 X1000 (4.8-10.8)
[2019-03-15 05:48] LABS: CALCIUM 8.8 mg/dL (8.8-10.2); CREATININE 1.3 mg/dL (0.5-0.9); POTASSIUM 4.3 mmol/L (3.5-5.1)
[2019-03-15] MEDS: HUMALOG SUBQ SCH ×4 (06:24→21:12)
[2019-03-15] MEDS: MIRALAX PO SCH (08:08)
[2019-03-15] MEDS: PRILOSEC PO SCH (08:08)
[2019-03-15] MEDS: COZAAR PO SCH (08:09)
[2019-03-15] MEDS: CORDARONE PO SCH (08:09)
[2019-03-15] MEDS: HEPARIN SUBQ SCH (08:09)
[2019-03-15] MEDS: ZAROXOLYN PO SCH (08:09)
[2019-03-15] MEDS: SYNTHROID PO SCH (08:09)
[2019-03-15 08:43] LABS: ALLEN TEST YES; BE 11.8 mmoll (-3.0-3.0); BLOOD TYPE ARTERIAL; HCO3-(ACT) 33.8 mmoll (20.0-26.0); METHB 0.9 % (0.0-1.5); O2(CT) 14.7 mL/dL (15.0-23.0); SAMPLE BLOOD; THB 12.5 g/dL (11.5-17.4); pH(98.6) 7.37 (7.35-7.45)
[2019-03-15 08:47] LABS: PCO2(98.6) 69 mmHg (35-45); PO2(98.6) 50 mmHg (60-100); SAO2 86.9 % (95.0-100.0)
[2019-03-15 08:48] LABS: MODALITY VENTIMASK; O2HB 83.9 % (95.0-99.0)
--- NOTE | 2019-03-15 09:20 | Diag Imaging Result Doc PS360 ---
EXAM: CHEST-PORTABLE INDICATION: dyspnea TECHNIQUE: One view COMPARISON: 03/13/2019 FINDINGS: Pulmonary venous congestion and interstitial edema is approximately stable. There is a stable left-sided pleural effusion and there has been development of a small right effusion. No new consolidations are identified. There is stable cardiomegaly. IMPRESSION: Development of a small right effusion. Stable chest, otherwise. Electronically signed by Tico Brown 03/15/2019 9:18 AM
--- NOTE | 2019-03-15 09:25 | PROGRESS NOTE ---
DATE: 03/15/2019 SUBJECTIVE: This patient is resting in bed, but she is not feeling good today, she feels tired and she has been having more shortness of breath. She is on a Ventimask right now, but it looks like she used the BiPAP machine during the night. She is tachycardic as well. OBJECTIVE: Vital Signs: Temperature 97.5 degrees, pulse 115, respiratory rate 17, blood pressure 104/71. Oxygen saturation 95% on the BiPAP machine and right now on the Ventimask 90% oxygen saturation. HEENT: Head normocephalic. No trauma. PERRLA. Neck: Supple. She does have JVD, central trachea. Chest: Decreased breath sounds globally with rales and crepitus at the bases. Abdomen: Soft, generalized tenderness to palpation mostly at the level of the periumbilical area with positive bowel sounds. Extremities: Trace to 1+ edema. No clubbing. No cyanosis. Neurological: The patient is alert and oriented at this moment, but she has been confused mostly during the night. Generalized weakness. LABORATORY: WBC 4.9, hemoglobin 9.6, hematocrit 33.9, platelets 352,000, pCO2 69, PO2 50. Sodium 136, potassium 4.3, chloride 90, bicarbonate 37, BUN 58, creatinine 1.3, glucose 133, calcium 8.8. ASSESSMENT AND PLAN: 1. Congestive heart failure exacerbation, systolic and diastolic, also pulmonary hypertension and sleep apnea, we will continue with diuresis. Her kidney function is improving slowly. So far, we have a negative balance of 5 L since admission. Cardiology Department is following this patient. We will continue to monitor. She used to be on dobutamine during the weekend, but has been stopped. 2. Acute kidney injury. This is getting better slowly. We will continue to monitor. 3. History of atrial fibrillation/atrial flutter. Continue with same management for now. She has not been placed on anticoagulation at this moment. Cardiology Department on board. 4. Chronic obstructive pulmonary disease, on home O2. She has no wheezing, but she is having significant shortness of breath and she has been retaining CO2 and she is hypoxemic, she has been placed on the BiPAP machine. 5. Hypertension. Actually, her blood pressure has been running a little bit low, but as per the patient, sometimes her blood pressure at home is around 80s. We will continue to monitor. Cardiology on board. 6. Type 2 diabetes. Continue with same management. 7. Anxiety and probably depression. Continue with a small dose of Xanax twice a day as needed for anxiety. We will continue with the same management. cc: Shant Walls MD
[2019-03-15] MEDS ORDERED: LANOXIN IV ONE (10:20)
[2019-03-15] MEDS: LOVENOX SUBQ SCH ×2 (10:55→21:12)
[2019-03-15] MEDS: XANAX PO PRN (21:12)
--- NOTE | 2019-03-15 21:31 | PULMONOLOGY CONSULTATION ---
DATE: 03/15/2019 REQUESTING PHYSICIAN: Dr. Sachin Maciel. REASON FOR CONSULTATION REQUEST: Worsening of shortness of breath and pulmonary hypertension. HISTORY OF PRESENT ILLNESS: Ms. Flores is a 63-year-old black female with a greater than 45 pack- year history for tobacco, morbid obesity, COPD, and obstructive sleep apnea who has been diagnosed with heart failure several years ago. She had an ejection fraction of 43% in 2006. She denies prior cardiac catheterization. She presented to the emergency room 03/09/2019 with worsening shortness of breath. An echocardiogram was performed that revealed [id number] pulmonary hypertension with a PA systolic pressure of 50, but her ejection fraction has dropped to 15% to 20%. She appears to have diuresed during this hospitalization, but her weights have been inconsistent. The patient reports she has had some increased lower extremity edema. She is on chronic home oxygen. She reports she has obstructive sleep apnea but has not worn her CPAP machine in a very long time because it made her feel like she was smothering. She denies fevers, chills, cough, or significant sputum production. PAST MEDICAL HISTORY/PROBLEM LIST: 1. COPD with chronic hypoxemic respiratory failure. No pulmonary function studies available for review. 2. Morbid obesity. 3. Obstructive sleep apnea with noncompliance. 4. Atrial fibrillation. 5. Diabetes mellitus. 6. Hypothyroidism. 7. Hypertension. SOCIAL HISTORY: Prior tobacco use but none for 2 or 3 years. No alcohol use. She is . FAMILY HISTORY: Positive for diabetes and heart disease. REVIEW OF SYSTEMS: As noted in the HPI. PHYSICAL EXAMINATION: General: Reveals a well-developed, obese, black female resting comfortably and in no distress. Vital signs: BP 88/54, heart rate 87, respiratory rate 19, oxygen saturation 94% on Venturi mask. HEENT: Pupils are equal and reactive. Oropharynx appears clear. Neck: Supple. Respiratory: Diminished breath sounds bilaterally. Cardiac Exam: S1, S2 with lateral PMI. Abdomen: Obese and soft. Extremities: Reveal 1+ peripheral edema. LABORATORIES/IMAGING: Chest x-ray reveals massive cardiomegaly with heart extending radiographically all the way to the left chest wall. She has a small pleural effusion on the right. Arterial blood gas reveals a pH of 7.37, pCO2 of 69, pO2 of 50 on 50% Ventimask. White blood count 4.94, hemoglobin 9.6, platelet count 352,000. IMPRESSION: A 63-year-old with chronic obstructive pulmonary disease, chronic hypoxemic respiratory failure, chronic hypercapnic respiratory failure with acute hypoxemic respiratory failure, systolic heart failure with component of cardiogenic shock suspected. The patient's decompensation may have been triggered in part by noncompliance with her CPAP device. The patient also has morbid obesity and would benefit from weight loss. RECOMMENDATIONS: 1. Initiate BiPAP at bedtime and p.r.n. during this hospitalization. 2. Continue oxygen for acute on chronic hypoxemic respiratory failure. 3. Agree with cardiology's plans to augment left ventricular function and diurese as tolerated. 4. The patient will need an outpatient sleep study. 5. The patient's long-term prognosis is guarded. She would benefit from weight loss. cc: Jared Palafox MD
[2019-03-15] MEDS: ANORO ELLIPTA 62.5-25 MCG INH INH SCH (23:53)
[2019-03-16] MEDS: DUONEB (A & A) INH PRN ×6 (03:51→23:35)
[2019-03-16 04:41] LABS: ALLEN TEST YES; BE 14.5 mmoll (-3.0-3.0); BLOOD TYPE ARTERIAL; HCO3-(ACT) 36.2 mmoll (20.0-26.0); METHB 1.3 % (0.0-1.5); O2(CT) 13.2 mL/dL (15.0-23.0); O2HB 94.2 % (95.0-99.0); PO2(98.6) 77 mmHg (60-100); SAMPLE BLOOD; SAO2 97.5 % (95.0-100.0); THB 9.9 g/dL (11.5-17.4); pH(98.6) 7.44 (7.35-7.45)
[2019-03-16 04:58] LABS: PCO2(98.6) 60 mmHg (35-45)
[2019-03-16 04:59] LABS: MODALITY BI PAP
[2019-03-16 05:39] LABS: BASO# 0.04 X1000 (0.0-0.2); BASO% 0.8 % (0.0-0.8); EOS# 0.17 X1000 (0.0-0.7); EOS% 3.5 % (0.0-10.0); HEMATOCRIT 34.4 % (37.0-47.0); HEMOGLOBIN 9.7 g/dL (12.0-16.0); LYMPH# 0.74 X1000 (1.2-3.4); MCH 25.1 PG (27-31); MCHC 28.2 g/dL (33-37); MCV 89.1 FL (81-99); MONO# 0.52 X1000 (0.11-0.59); MONO% 10.6 % (1.7-9.3); MPV 10.9 FL (7.4-10.4); NEUT# 3.45 X1000 (1.4-6.5); NEUT% 70.1 % (42.2-75.2); PLT 339 X1000 (130-400); RBC 3.86 XMIL (4.2-5.4); WBC 4.92 X1000 (4.8-10.8)
[2019-03-16] MEDS: LASIX IV SCH ×2 (05:44→17:38)
[2019-03-16 06:01] LABS: CREATININE 1.4 mg/dL (0.5-0.9); POTASSIUM 4.3 mmol/L (3.5-5.1)
[2019-03-16] MEDS: HUMALOG SUBQ SCH ×4 (06:10→21:19)
[2019-03-16 06:25] LABS: ANISOCYTOSIS 3+; BASO 2 % (0-1); EOS 8 % (1-10); LYMPHS 10 % (21-51); MONO 8 % (1-9); SEGS 72 % (42-75)
[2019-03-16 06:26] LABS: HYPOCHROM 2+
[2019-03-16 06:27] LABS: MICROCYTOSIS 1+; POIKILOCYTOSIS 1+
--- NOTE | 2019-03-16 06:49 | Diag Imaging Result Doc PS360 ---
EXAM: CHEST-PORTABLE HISTORY: dyspnea TECHNIQUE: Portable chest single view COMPARISON: 03/15/2019 FINDINGS: The heart remains markedly enlarged. Central vascular prominence as well as bilateral pleural effusions. There is basilar atelectasis and there may be underlying infiltrates as well. Overall the findings are more prominent than on the prior study. IMPRESSION: Interval worsening. Electronically signed by Maged Bullard 03/16/2019 6:47 AM
[2019-03-16] MEDS: CORDARONE PO SCH (08:42)
[2019-03-16] MEDS: LANOXIN PO SCH (08:42)
[2019-03-16] MEDS: COZAAR PO SCH (08:42)
[2019-03-16] MEDS: SYNTHROID PO SCH (08:42)
[2019-03-16] MEDS: PRILOSEC PO SCH (08:42)
[2019-03-16] MEDS: MIRALAX PO SCH (08:42)
[2019-03-16] MEDS: ZAROXOLYN PO SCH (08:42)
[2019-03-16] MEDS: LOVENOX SUBQ SCH ×2 (08:43→20:13)
[2019-03-16] MEDS: XANAX PO PRN ×2 (08:54→20:14)
[2019-03-16] MEDS: ANORO ELLIPTA 62.5-25 MCG INH INH SCH (11:34)
--- NOTE | 2019-03-16 15:01 | CARDIOLOGY PROGRESS NOTE ---
DATE: 03/16/2019 SUBJECTIVE: She reports she feels much better. She is sitting up in bed. She has no chest pain complaints. Breathing has improved. PHYSICAL: She is afebrile, heart rate is 75, blood pressure 109/56. Her I's and O's continue to be quite negative for the course of the hospitalization, she is -6.9 L.General: No acute distress. Cardiovascular: She sounds to be in a irregularly regular rate and rhythm. No murmurs. No S3. She has no lower extremity edema. Chest: Has mild reduction in breath sounds in the bilateral bases. Abdomen: Soft, nontender. PERTINENT DATA: Her chest x-ray shows overall interval worsening, central vascular prominence is noted as well as bilateral pleural effusions. Her lab data shows a white count of 4.9, her hematocrit is 34, platelet count is 339,000. Her sodium is 140, potassium 4.3, BUN 63, creatinine is 1.4. ASSESSMENT: Ms. Flores is a 63-year-old female with an ischemic cardiomyopathy and atrial fibrillation. PLAN: We will continue on current medications. She is diuresing. Will recheck laboratories in the morning including her basic metabolic panel and proBNP. She is currently on amiodarone but does not seem to be maintaining sinus rhythm. We certainly could consider stopping that medication and initiating her on a low dose of beta-rossana which we will do so today. cc: Sachin Maciel MD
--- NOTE | 2019-03-16 16:03 | PROGRESS NOTE ---
DATE: 03/16/2019 SUBJECTIVE: Patient has no major complaints. She is sitting up in bed. She still has a face mask on which they have been unable or having difficulty weaning her. She is still very slow to get up and walk around. OBJECTIVE: Vital signs: Blood pressure 98/51, heart rate 90, respiratory rate 18, temperature 97.5 degrees. She is 98% on 50%, although I think she is on less than that. Cardiovascular: Regular rate and rhythm. Pulmonary: Bilateral breath sounds. Clear to auscultation. GI: Soft, nontender, nondistended. Bowel sounds are positive. Extremities: She has 1 to 2+ pitting edema in the lower extremities. LABORATORY DATA: White count 4.9, hemoglobin and hematocrit 9 and 34, platelets 339,000. PH 7.44, pCO2 60 PaO2 77. Creatinine 1.4. PROBLEM LIST: 1. Acute systolic and diastolic heart failure exacerbation. She is still on high dose diuretics. Urine output has been 1,300, 2,075 in the last 24 to 36 hours. Overall she has improved greatly. 2. Acute kidney injury. We will continue to follow renal function closely. 3. Atrial fibrillation/atrial flutter. We will continue to manage. Currently rate controlled. She is on anticoagulation with Lovenox currently. 4. Chronic obstructive pulmonary disease. There is no clear wheezing. She has been on BiPAP intermittently and may need that at home. 5. Diabetes. We will continue her regular medications. Her blood sugars have been fairly well controlled. DISPOSITION: Pending her clinical status. We will continue to follow closely. cc: Natanael Hutchins MD
--- NOTE | 2019-03-16 20:31 | PULMONOLOGY PROGRESS NOTE ---
DATE: 03/16/2019 SUBJECTIVE: The patient reports she did sleep on the BiPAP last evening. Her urine output is documented as negative, but she only had 245 listed as intake. OBJECTIVE: Vital signs: The patient has been afebrile for the last 24 hours. Blood pressure 109/56, heart rate 75, respiratory rate 18, oxygen saturation 93% on Venturi mask. HEENT: Pupils are equal and reactive. Oropharynx appears clear. Neck: Supple. Chest: Good air entry bilaterally without wheezing or rhonchi. She has prolonged expiratory phase. Cardiac: S1, S2. Irregular rhythm. Abdomen: Soft and obese. Extremities: Trace edema. LABORATORIES: Arterial blood gas reveals a pH of 7.44, pCO2 of 60, pO2 of 77 on BiPAP. White blood count 4.92, hemoglobin 9.7, platelet count 333,000. Sodium 140, potassium 4.3, chloride 92, bicarbonate 38, BUN 63, creatinine 1.4. IMAGING STUDIES: Chest x-ray reveals marked cardiomegaly, vascular prominence, pleural effusions with slight increasing prominence in findings compared to 03/15/2019. IMPRESSION: A 63-year-old with: 1. Chronic obstructive pulmonary disease. 2. Chronic hypoxemic respiratory failure. 3. Chronic hypercapnic respiratory failure. 4. Acute hypoxemic respiratory failure. 5. Severe heart failure. Symptomatically, the patient has improved overnight with the BiPAP, although radiographically, she has not improved. There may be a delay in radiographic findings. RECOMMENDATION: 1. Continue BiPAP at bedtime and p.r.n. 2. Continue oxygen for hypoxemic respiratory failure. 3. Continue to maximize LV function. 4. Recommend weight loss and outpatient sleep study. cc: Jared Palafox MD [facility]
[2019-03-17] MEDS: DUONEB (A & A) INH PRN ×6 (03:25→23:01)
[2019-03-17 05:25] LABS: BASO# 0.05 X1000 (0.0-0.2); BASO% 1.1 % (0.0-0.8); EOS# 0.15 X1000 (0.0-0.7); EOS% 3.4 % (0.0-10.0); HEMATOCRIT 33.4 % (37.0-47.0); HEMOGLOBIN 9.3 g/dL (12.0-16.0); LYMPH# 0.73 X1000 (1.2-3.4); LYMPH% 16.4 % (20.5-51.1); MCH 24.9 PG (27-31); MCHC 27.8 g/dL (33-37); MCV 89.5 FL (81-99); MONO# 0.52 X1000 (0.11-0.59); MONO% 11.7 % (1.7-9.3); MPV 11.1 FL (7.4-10.4); NEUT# 3.01 X1000 (1.4-6.5); NEUT% 67.4 % (42.2-75.2); PLT 340 X1000 (130-400); RBC 3.73 XMIL (4.2-5.4); RDW 20.4 % (11.5-14.5); WBC 4.46 X1000 (4.8-10.8)
[2019-03-17 05:36] LABS: HEMOGLOBIN A1C 7.7 % (4.8-6.0)
[2019-03-17] MEDS: LASIX IV SCH ×2 (05:37→17:46)
[2019-03-17 05:56] LABS: CREATININE 1.4 mg/dL (0.5-0.9); MAGNESIUM 2.3 mg/dL (1.5-2.7)
[2019-03-17] MEDS: HUMALOG SUBQ SCH ×4 (06:14→20:57)
--- NOTE | 2019-03-17 06:38 | Diag Imaging Result Doc PS360 ---
EXAM: CHEST-PORTABLE HISTORY: abnormal exam TECHNIQUE: Portable chest single view COMPARISON: 03/16/2019 FINDINGS: The lungs are well expanded. There is marked cardiomegaly. There is also pulmonary edema and a small left pleural effusion. There is atelectasis in the left base and there may be underlying pneumonia as well. IMPRESSION: No significant interval improvement. Electronically signed by Maged Bullard 03/17/2019 6:35 AM
[2019-03-17] MEDS: ANORO ELLIPTA 62.5-25 MCG INH INH SCH (07:29)
[2019-03-17] MEDS: COZAAR PO SCH (08:25)
[2019-03-17] MEDS: LOVENOX SUBQ SCH ×2 (08:25→20:58)
[2019-03-17] MEDS: SYNTHROID PO SCH (08:25)
[2019-03-17] MEDS: TOPROL XL PO SCH (08:25)
[2019-03-17] MEDS: LANOXIN PO SCH (08:25)
[2019-03-17] MEDS: PRILOSEC PO SCH (08:25)
[2019-03-17] MEDS: MIRALAX PO SCH (08:26)
[2019-03-17] MEDS: ZAROXOLYN PO SCH (08:26)
[2019-03-17] MEDS: XANAX PO PRN ×2 (08:26→20:58)
--- NOTE | 2019-03-17 11:10 | CARDIOLOGY PROGRESS NOTE ---
DATE: 03/17/2019 SUBJECTIVE: Ms. Flores' breathing seems to be relatively stable. She has no complaints of shortness of breath. She has no orthopnea. She continues on supplemental oxygen, physical. OBJECTIVE: Vital signs: She is afebrile. Heart rates seem to be predominantly in the 90s to low 100s. Blood pressure 94/61. Generally: She is in no acute distress. Cardiovascular: She is in a irregularly irregular rhythm. She has no murmur, she has no S3, no lower extremity edema. Chest: Has mild reduction in bilateral breath sounds in the bases. Abdomen: Soft, nontender, nondistended. PERTINENT DATA: White count 4.4, hematocrit 33, platelet count is 340,000. sodium is 137, potassium 4, BUN 55, creatinine is 1.4 which is slightly improved from yesterday. Her proBNP is 2171 which is down from 3519 a couple days ago. Chest x-ray was reviewed. ASSESSMENT: Status is 63-year-old female with ischemic cardiomyopathy. PLAN: She seems to be doing better clinically as well as based on her laboratory data. Currently, I have no acute recommendations other than continuation with current diuretics. cc: Sachin Maciel MD MTDD
--- NOTE | 2019-03-17 14:41 | PROGRESS NOTE ---
DATE: 03/17/2019 SUBJECTIVE: She is breathing a little bit better. She is down to nasal cannula 93% on about 6 L. OBJECTIVE: Heart rate 97, respiratory rate 16, temperature 98.5, and blood pressure 92/68. Cardiovascular: Regular rate and rhythm. Pulmonary: Bilateral breath sounds clear to auscultation. GI: Soft, nontender, and nondistended. Bowel sounds are positive. LABORATORY DATA: White count is 4, hemoglobin and hematocrit 9 and 33, and platelets 340,000. Creatinine 1.4. ProBNP down to 2171. PROBLEM LIST: 1. Acute systolic diastolic CHF. We will continue on high-dose diuretics. We will continue treatment and follow. Cardiology is following. 2. Chronic obstructive pulmonary disease with mild exacerbation. Dr. Palafox is also following. Recommending BiPAP. She will need outpatient sleep study. 3. Acute kidney failure that appears to be stable. 4. Atrial fibrillation is rate controlled. She is on Lovenox, which I think we could probably switch her to Eliquis. I am not sure what we are holding for. Plus, she is on Lovenox, but her renal function is marginal. GFR is 46. I think we may switch her to Eliquis. DISPOSITION: Pending her clinical status. She is still fairly marginal, so we will continue to monitor her in the CICU and follow closely. cc: Natanael Hutchins MD
[2019-03-18] MEDS: DUONEB (A & A) INH PRN ×4 (03:25→15:16)
[2019-03-18 05:32] LABS: BASO# 0.04 X1000 (0.0-0.2); BASO% 0.9 % (0.0-0.8); EOS# 0.14 X1000 (0.0-0.7); EOS% 3.3 % (0.0-10.0); HEMATOCRIT 35.3 % (37.0-47.0); HEMOGLOBIN 9.7 g/dL (12.0-16.0); LYMPH# 0.77 X1000 (1.2-3.4); LYMPH% 17.9 % (20.5-51.1); MCH 24.9 PG (27-31); MCHC 27.5 g/dL (33-37); MCV 90.5 FL (81-99); MONO# 0.59 X1000 (0.11-0.59); MONO% 13.8 % (1.7-9.3); MPV 11.5 FL (7.4-10.4); NEUT# 2.75 X1000 (1.4-6.5); NEUT% 64.1 % (42.2-75.2); PLT 363 X1000 (130-400); RDW 20.6 % (11.5-14.5); WBC 4.29 X1000 (4.8-10.8)
[2019-03-18 05:45] LABS: CALCIUM 9.5 mg/dL (8.8-10.2); CREATININE 1.4 mg/dL (0.5-0.9); MAGNESIUM 2.5 mg/dL (1.5-2.7); POTASSIUM 4.3 mmol/L (3.5-5.1)
[2019-03-18] MEDS: HUMALOG SUBQ SCH ×4 (06:02→20:57)
[2019-03-18] MEDS: LASIX IV SCH ×3 (06:02→16:59)
[2019-03-18] MEDS: ANORO ELLIPTA 62.5-25 MCG INH INH SCH (07:37)
--- NOTE | 2019-03-18 08:39 | EKG Report ---
Test Performed on : 03/17/2019 11:45:43 PM Test Reason : change in rhythm Blood Pressure : / mmHG Vent. Rate : 091 BPM Atrial Rate : 234 BPM P-R Int : 000 ms QRS Dur : 084 ms QT Int : 394 ms P-R-T Axes : 000 -57 013 degrees QTc Int : 484 ms Atrial flutter. with variable AV block. Left axis deviation Low voltage QRS Inferior infarct , age undetermined Anterolateral infarct (cited on or before 02-OCT-2017) Abnormal ECG When compared with ECG of 11-MAR-2019 07:09, QRS axis shifted left Inferior infarct is now present Questionable change in initial forces of Lateral leads Confirmed by Travis HECTOR, Kali Rankin ([id number]) on 03/19/2019 9:04:07 AM
[2019-03-18] MEDS ORDERED: ELIQUIS PO SCH (09:00)
[2019-03-18] MEDS: COZAAR PO SCH (09:26)
[2019-03-18] MEDS: XANAX PO PRN ×2 (09:26→20:56)
[2019-03-18] MEDS: ZAROXOLYN PO SCH (09:26)
[2019-03-18] MEDS: PRILOSEC PO SCH (09:26)
[2019-03-18] MEDS: SYNTHROID PO SCH (09:27)
[2019-03-18] MEDS: LANOXIN PO SCH (09:27)
[2019-03-18] MEDS: TOPROL XL PO SCH (09:27)
[2019-03-18] MEDS: MIRALAX PO SCH (09:27)
--- NOTE | 2019-03-18 13:36 | PROGRESS NOTE ---
DATE: 03/18/2019 SUBJECTIVE: Patient has no major complaints. She looks better to me today. Her sat monitor is not reading very well, but she is not struggling to breathe like she was yesterday. She looks more awake and alert. OBJECTIVE: Blood pressure is a little low 88/62, heart rate of 91, respiratory rate 18 and temperature 97.4 degrees, and 99% on 6 L.Cardiovascular: Regular rate and rhythm. Pulmonary: Bilateral breath sounds. Clear to auscultation. GI: Soft, nontender, and nondistended. Bowel sounds are positive. LABORATORY DATA: White count is 4, hemoglobin and hematocrit 9 and 35, and platelets 363,000. BUN and creatinine of 54 and 1.4. PROBLEM LIST: 1. Acute systolic diastolic heart failure. She is on diuretics. I think she is improving slowly. Cardiology is following. I think she is slowly improving. 2. Chronic obstructive pulmonary disease exacerbation with hypercapnic respiratory failure. She is doing well on BiPAP. Dr. Palafox is following. I agree she will likely need some sort of positive-pressure ventilation at home, and set her up for a sleep study. 3. Acute kidney failure. Creatinine appears stable. Urine output is decent. 4. Atrial fibrillation. She is overall rate controlled. She is on Eliquis. She was on Lovenox. I just switched her to Eliquis at the 2.5 dose because of her kidney failure. DISPOSITION: Pending her clinical status. We will continue to follow. cc: Natanael Hutchins MD
--- NOTE | 2019-03-18 14:08 | CARDIOLOGY PROGRESS NOTE ---
DATE: 03/18/2019 SUBJECTIVE: Ms Flores continues to be very short of breath but seems to be doing reasonably better. PHYSICAL EXAMINATION: Vital signs: She is afebrile. Her heart rates predominantly are in the 70s to 90s. Blood pressure most recently was 88/62, her intake and output continue to be significantly negative. She has a total of 10-1/2 L out. Generally: No acute distress. Cardiovascular: She sounds to be in an irregularly irregular rhythm. She has no murmurs, she has no S3. She has no lower extremity edema. Chest: Clear bilaterally. She has no increased work of breathing. She has trace to mild bilateral lower extremity edema. PERTINENT DATA: White count is 4.3, hematocrit 35, platelet count is 363,000. Her sodium is 140, potassium 4.3, BUN 54, creatinine is 1.4. ASSESSMENT: Ms. Flores is a 63-year-old female with systolic heart failure. PLAN: We will continue with current rate of diuresis. I will recheck labs in the morning. I have increased her apixaban to 5 mg b.i.d. which would be appropriate for her age, weight and kidney function. Hopefully, we can transition to oral diuretics in the near future. cc: Sachin Maciel MD
[2019-03-18] MEDS: ELIQUIS PO SCH (20:56)
--- NOTE | 2019-03-18 21:38 | PULMONOLOGY PROGRESS NOTE ---
DATE: 03/18/2019 SUBJECTIVE: The patient is awake, alert and conversant. She reports she did ambulate in the hallway today. OBJECTIVE: Vital Signs: Blood pressure 94/63, heart rate 84, respiratory rate 17, oxygen saturation 94% on 6 L per nasal cannula. HEENT: Pupils are equal and reactive. Oropharynx is clear. Neck: Supple. Chest: Reveals prolonged expiratory phase. Cardiac exam: S1, S2 with a regular irregular rhythm. Abdomen: Obese and soft. Extremities: Reveal trace to 1+ peripheral edema. LABORATORIES: White blood count 4.29, hemoglobin 9.7, platelet count 363,000. Sodium 91.4. IMPRESSION: A 63-year-old with: 1. Chronic obstructive pulmonary disease. 2. Chronic hypoxemic respiratory failure. 3. Acute hypoxemic respiratory failure. 4. Chronic hypercapnic respiratory failure. 5. Severe systolic heart failure. 6. Obstructive sleep apnea. DISCUSSION: A 63-year-old with problems outlined above. It is difficult to document diuresis following her weights, but her intakes and outputs suggest she has had some diuresis. She reports her breathing has improved and she is able to ambulate in the hallway. She is tolerating the BiPAP at night. RECOMMENDATION: 1. Continue BiPAP at bedtime and p.r.n. 2. Continue oxygen for hypoxemic respiratory failure. 3. Diuresis as tolerated. 4. Weight loss has been recommended. 5. Outpatient sleep study is recommended. 6. We will follow up with an arterial blood gas and chest x-ray tomorrow morning. cc: Jared Palafox MD
[2019-03-19 04:53] LABS: ALLEN TEST YES; BE 19.5 mmoll (-3.0-3.0); BLOOD TYPE ARTERIAL; HCO3-(ACT) 40.1 mmoll (20.0-26.0); O2(CT) 16.4 mL/dL (15.0-23.0); O2HB 94.5 % (95.0-99.0); PO2(98.6) 85 mmHg (60-100); SAMPLE BLOOD; SAO2 97.9 % (95.0-100.0); THB 12.3 g/dL (11.5-17.4); pH(98.6) 7.47 (7.35-7.45)
[2019-03-19 04:55] LABS: MODALITY BI PAP; PCO2(98.6) 64 mmHg (35-45)
[2019-03-19 06:05] LABS: BASO# 0.05 X1000 (0.0-0.2); BASO% 1.1 % (0.0-0.8); EOS# 0.14 X1000 (0.0-0.7); HEMATOCRIT 37.4 % (37.0-47.0); HEMOGLOBIN 10.4 g/dL (12.0-16.0); LYMPH# 0.79 X1000 (1.2-3.4); LYMPH% 16.7 % (20.5-51.1); MCH 25.3 PG (27-31); MCHC 27.8 g/dL (33-37); MONO# 0.61 X1000 (0.11-0.59); MONO% 12.9 % (1.7-9.3); NEUT# 3.13 X1000 (1.4-6.5); NEUT% 66.3 % (42.2-75.2); PLT 358 X1000 (130-400); RBC 4.11 XMIL (4.2-5.4); RDW 20.9 % (11.5-14.5); WBC 4.72 X1000 (4.8-10.8)
[2019-03-19] MEDS: LASIX IV SCH ×3 (06:34→16:59)
[2019-03-19 06:36] LABS: AGAP 14; BUN 46 mg/dL (8-22); CALCIUM 9.5 mg/dL (8.8-10.2); CHLORIDE 90 mmol/L (98-107); COSMO 294; CREATININE 1.1 mg/dL (0.5-0.9); ESTIMATED GFR > 60; GLUCOSE 118 mg/dL (70-104); MAGNESIUM 2.4 mg/dL (1.5-2.7); POTASSIUM 4.3 mmol/L (3.5-5.1); SODIUM 141 mmol/L (136-145); TCO2 37 mmol/L (25-35)
[2019-03-19] MEDS: HUMALOG SUBQ SCH ×4 (07:12→21:48)
[2019-03-19] MEDS: DUONEB (A & A) INH PRN (07:44)
[2019-03-19] MEDS: ANORO ELLIPTA 62.5-25 MCG INH INH SCH (07:45)
--- NOTE | 2019-03-19 08:07 | Diag Imaging Result Doc PS360 ---
CHEST-PORTABLE - 03/19/2019 INDICATION: abnormal exam COMPARISON: 03/17/2019 FINDINGS: Stable cardiomegaly and pulmonary vascular congestion. Stable ill-defined bibasilar infiltrates/edema. No large pleural effusion. IMPRESSION: Cardiomegaly and mild interstitial pulmonary edema. No change from prior. Electronically signed by Gregory Wall 03/19/2019 8:05 AM
[2019-03-19] MEDS: TOPROL XL PO SCH (08:45)
[2019-03-19] MEDS: PRILOSEC PO SCH (08:45)
[2019-03-19] MEDS: LANOXIN PO SCH (08:45)
[2019-03-19] MEDS: ELIQUIS PO SCH ×2 (08:45→21:48)
[2019-03-19] MEDS: ZAROXOLYN PO SCH (08:45)
[2019-03-19] MEDS: MIRALAX PO SCH (08:45)
[2019-03-19] MEDS: COZAAR PO SCH (08:45)
[2019-03-19] MEDS: XANAX PO PRN ×2 (08:45→21:53)
[2019-03-19] MEDS: SYNTHROID PO SCH (08:45)
--- NOTE | 2019-03-19 12:44 | PROGRESS NOTE ---
DATE: 03/19/2019 OBJECTIVE: Vital Signs: Blood pressure is 92/47, heart rate 85, respiratory 17, temperature 97.5 degrees, and 96% on 6 L. Cardiovascular: Regular rate and rhythm. Pulmonary: Diminished at the bases. GI: Soft, nontender, and nondistended. Bowel sounds are positive. She has 1 to 2+ pitting edema bilaterally. LABORATORY DATA: White count 4, hemoglobin and hematocrit 10 and 37, platelets 358,000. A pH 7.47, pCO2 of 64, and PaO2 85, creatinine is 1.1, and BUN of 46. ProBNP is 2667 which is actually up from 2171. PROBLEM LIST: 1. Acute systolic heart failure exacerbation, diastolic. She is on diuretics, and is improving today. I saw her ambulate with physical therapy. She went all the way down the amaro maybe 50 to 100 feet, but she has systolic heart failure. We will continue treatments. Cardiology is following. Continue to follow closely. 2. Hypercapnic respiratory failure. She is on intermittent BiPAP. Continue treatment. Pulmonary is following as well. 3. Acute kidney injury. Her creatinine is actually improving. Urine output is good. 4. Atrial fibrillation. We had switched her to Eliquis. Dr. Maciel has increased the dose based on her kidney function, which to be fair her creatinine was a little worse yesterday, but she is on the 5 mg twice a day. DISPOSITION: We are waiting for her to be a little bit better. She has home oxygen. We are still trying to sort that out a little bit about how she is doing, but we will work on that. We will continue to follow closely. cc: Natanael Hutchins MD
[2019-03-20] MEDS: HUMALOG SUBQ SCH ×4 (06:43→20:34)
[2019-03-20] MEDS: LASIX IV SCH ×2 (06:43→17:29)
[2019-03-20] MEDS: TOPROL XL PO SCH (09:29)
[2019-03-20] MEDS: LANOXIN PO SCH (09:29)
[2019-03-20] MEDS: ELIQUIS PO SCH ×2 (09:29→20:33)
[2019-03-20] MEDS: MIRALAX PO SCH (09:29)
[2019-03-20] MEDS: ZAROXOLYN PO SCH (09:29)
[2019-03-20] MEDS: PRILOSEC PO SCH (09:29)
[2019-03-20] MEDS: SYNTHROID PO SCH (09:29)
[2019-03-20] MEDS: COZAAR PO SCH (09:29)
[2019-03-20] MEDS: XANAX PO PRN ×2 (09:36→20:37)
--- NOTE | 2019-03-20 14:53 | PROGRESS NOTE ---
DATE: 03/20/2019 SUBJECTIVE: Patient has no major complaints. She is sitting up in bed. She has just eaten. She seems to be doing okay. OBJECTIVE: Blood pressure is 101/64, heart rate of 86, respiratory rate of 17, temperature 98.4 degrees. She is 96% on 6 but then on 3 she was on 6 L when I saw her.Cardiovascular: Regular rate and rhythm. Pulmonary: Bilateral breath sounds clear to auscultation. GI: Soft, nontender, nondistended. Bowel sounds are positive. LAB: I do not have any new laboratory data today. PROBLEM LIST: 1. Acute systolic heart failure exacerbation. She is on diuretics. We will continue diuresis. Her urine output about 2100, 3575. She is doing pretty good as far as her urine, she is diuresing pretty well although the fluid removal is a slow process as far as getting it off her interstitial spaces but Cardiology is also following. 2. Chronic hypercapnic respiratory failure, chronic obstructive pulmonary disease. She is on BiPAP intermittently. She will likely need this long-term but she is self-pay. Waiting on pending insurance before we can set that up but pulmonary is following her. She is already on home oxygen but not on 5 or 6 L. We are working on trying to wean that down. 3. Acute on chronic renal failure. Her kidney stage currently is stage actually she has no renal failure right now based on her numbers from yesterday but will see what her level is. 4. Atrial fibrillation. She is rate controlled and she is on Eliquis. DISPOSITION: I think she is probably getting close to being able to go to the floor. I would like her to be on a little bit less oxygen before we make that happen but will see how things look. cc: Natanael Hutchins MD
[2019-03-21 05:53] LABS: HEMATOCRIT 36.3 % (37.0-47.0); HEMOGLOBIN 10.2 g/dL (12.0-16.0); MCH 25.8 PG (27-31); MCHC 28.1 g/dL (33-37); MCV 91.7 FL (81-99); MPV 10.8 FL (7.4-10.4); RBC 3.96 XMIL (4.2-5.4); RDW 20.6 % (11.5-14.5); WBC 5.63 X1000 (4.8-10.8)
[2019-03-21 06:10] LABS: CALCIUM 9.6 mg/dL (8.8-10.2); CREATININE 1.2 mg/dL (0.5-0.9); POTASSIUM 4.2 mmol/L (3.5-5.1)
[2019-03-21] MEDS: LASIX IV SCH (06:21)
[2019-03-21] MEDS: HUMALOG SUBQ SCH ×4 (06:22→20:44)
[2019-03-21] MEDS: COZAAR PO SCH (09:22)
[2019-03-21] MEDS: ZAROXOLYN PO SCH (09:24)
[2019-03-21] MEDS: SYNTHROID PO SCH (09:24)
[2019-03-21] MEDS: ELIQUIS PO SCH ×2 (09:24→20:43)
[2019-03-21] MEDS: MIRALAX PO SCH (09:25)
[2019-03-21] MEDS: PRILOSEC PO SCH (09:25)
[2019-03-21] MEDS: LANOXIN PO SCH (09:25)
[2019-03-21] MEDS: TOPROL XL PO SCH (09:25)
[2019-03-21] MEDS: XANAX PO PRN ×2 (09:31→20:43)
[2019-03-21] MEDS ORDERED: B & O 16A SUPP PR PRN (13:00)
--- NOTE | 2019-03-21 13:17 | PROGRESS NOTE ---
DATE: 03/21/2019 SUBJECTIVE: The patient looks like she is breathing better. She is awake, alert. She is complaining of a lot of bladder spasms, she says to the point of crying, they are so severe. She really would like her Blackburn catheter out. OBJECTIVE: Vital Signs: Blood pressure did have one of 82/54 this morning with a MAP of 61. She has had some in the 80s, but most have been in the 90s to 100s. Cardiovascular: Regular rate and rhythm. Pulmonary: Bilateral breath sounds. Clear to auscultation. GI: Soft, nontender, nondistended. Bowel sounds are positive. LABORATORY DATA: White count 5, hemoglobin and hematocrit 10 and 36, platelets 346,000. Creatinine 1.2, BUN of 46, which is actually overall an improvement as far as her creatinine is concerned. PROBLEM LIST: 1. Acute congestive heart failure exacerbation, systolic heart failure exacerbation. We will continue diuretics. She has got good urine output and slow improvement. We ill continue to wean oxygen as tolerated. Cardiology and Pulmonary are still following. We may need to adjust her medicines a little bit since she is on the hypotensive side. 2. Chronic hypercapnic respiratory failure with history of chronic obstructive pulmonary disease with mild exacerbation. She is on intermittent bilevel positive airway pressure. She has home oxygen. We are trying to get her down to 4 to 5 liters. She may need a portable oxygen, which is the request I made from Social Work not to set up oxygen, but see about portable oxygen, which she is self-pay and that may be difficult to coordinate. Will see what we can do tomorrow. 3. Acute on chronic renal failure. She is stable right now, if not overall improved. Still with good urine output. 4. Atrial fibrillation. She is rate controlled on her current medication. She is on Eliquis. 5. Disposition. I think once we can get her to ideally 4 liters, she should be stable for discharge. Will continue to work with her getting up and around. cc: Natanael Hutchins MD
[2019-03-21 17:22] LABS: URINE SOURCE CATH
[2019-03-21 17:25] LABS: BILIRUBIN URINE SMALL (NEGATIVE); BLOOD URINE SMALL (NEGATIVE); COLOR ORANGE; GLUCOSE URINE NEGATIVE (NEGATIVE); KETONE URINE NEGATIVE (NEGATIVE); LEUKOCYTES URINE LARGE (NEGATIVE); NITRITE URINE NEGATIVE (NEGATIVE); PROTEIN URINE 600 mg/dL (NEGATIVE); SP GRAVITY URINE 1.013; TURBIDITY URINE TURBID (CLEAR); UROBILINOGEN URINE 8 mg/dL (NORMAL)
[2019-03-21 17:27] LABS: UR EPITHELIAL CELLS >10 /HPF (<10); URINE BACTERIA 3+ /HPF; URINE RBC TNTC /HPF (<10); URINE WBC TNTC /HPF (<10)
--- NOTE | 2019-03-21 17:32 | PROGRESS NOTE ---
DATE: 03/21/2019 SUBJECTIVE: Patient denies shortness of breath on supplemental oxygen per nasal cannula. She complains of bladder discomfort. There has been no chest pain. OBJECTIVE: Vital signs: Blood pressure 91/58, heart rate 91, oxygen saturation 98% on nasal cannula oxygen. Neck: Jugular venous distention cannot be appreciated. Chest: Clear to auscultation. Cardiac: Reveals an irregular rate and rhythm without appreciable murmur or gallop. Extremities: Without edema. : Note is made of patient's Blackburn catheter with very turbid and almost brown urine. LABORATORY DATA: Includes white blood cell count of 5.63, hematocrit 36.3, hemoglobin 10.2, platelet count 346,000. Sodium 137, potassium 4.2, chloride 86, carbon dioxide 39, BUN 46, creatinine 1.2, glucose 127. IMPRESSIONS: 1. Acute on chronic systolic heart failure. The patient has improved with diuresis and laboratory data suggest emerging prerenal azotemia. 2. Chronic hypercapnic respiratory failure with chronic obstructive pulmonary disease. 3. Acute on chronic renal dysfunction. 4. Chronic atrial fibrillation. RECOMMENDATIONS: 1. Transition to oral diuretic therapy. She had been on torsemide 100 mg daily prior to admission. We will discontinue IV Lasix and resume torsemide. 2. Urinalysis and culture. Consider initiating antibiotic therapy for urinary tract infection, as well as removal of Blackburn catheter. cc: Gray Fox MD
[2019-03-21 17:34] LABS: URINE CASTS NONE SEEN; URINE CRYSTALS TRIPLE PHOS PRESENT; URINE YEAST PRESENT
[2019-03-21] MEDS: ROCEPHIN 1 GM in NS 50 ML IV SCH (17:39)
[2019-03-22 05:47] LABS: HEMATOCRIT 35.5 % (37.0-47.0); MCH 25.8 PG (27-31); MCHC 28.2 g/dL (33-37); MCV 91.7 FL (81-99); MPV 11.1 FL (7.4-10.4); RBC 3.87 XMIL (4.2-5.4); RDW 20.4 % (11.5-14.5); WBC 5.39 X1000 (4.8-10.8)
[2019-03-22 06:10] LABS: CALCIUM 9.2 mg/dL (8.8-10.2); CREATININE 1.2 mg/dL (0.5-0.9); MAGNESIUM 2.4 mg/dL (1.5-2.7)
[2019-03-22] MEDS: HUMALOG SUBQ SCH ×4 (06:40→21:24)
--- NOTE | 2019-03-22 07:31 | Diag Imaging Result Doc PS360 ---
EXAM: CHEST-1 VIEW INDICATION: SOB TECHNIQUE: One view COMPARISON: 03/19/2019 FINDINGS: Pulmonary edema and pulmonary venous congestion is approximately stable. Mild interstitial edema is approximately stable. No new consolidation is identified. There is stable cardiomegaly. IMPRESSION: Grossly stable chest. Electronically signed by Tico Brown 03/22/2019 7:29 AM
[2019-03-22] MEDS: ANORO ELLIPTA 62.5-25 MCG INH INH SCH ×2 (07:48→21:16)
[2019-03-22] MEDS: DUONEB (A & A) INH PRN ×5 (07:48→23:08)
[2019-03-22] MEDS: XANAX PO PRN ×2 (09:13→21:24)
[2019-03-22] MEDS: DEMADEX PO SCH (09:14)
[2019-03-22] MEDS: ZAROXOLYN PO SCH (09:14)
[2019-03-22] MEDS: ELIQUIS PO SCH ×2 (09:14→21:24)
[2019-03-22] MEDS: PYRIDIUM PO SCH ×2 (09:15→12:50)
[2019-03-22] MEDS: TOPROL XL PO SCH (09:15)
[2019-03-22] MEDS: COZAAR PO SCH (09:15)
[2019-03-22] MEDS: PRILOSEC PO SCH (09:15)
[2019-03-22] MEDS: LANOXIN PO SCH (09:15)
[2019-03-22] MEDS: MIRALAX PO SCH (09:16)
[2019-03-22] MEDS: SYNTHROID PO SCH (09:16)
--- NOTE | 2019-03-22 10:56 | PROGRESS NOTE ---
DATE: 03/22/2019 SUBJECTIVE: The patient has no major complaints. She was sleeping. She had a lot of discomfort associated with her catheter and dysuria. We took her catheter out yesterday but she is still having a lot issues with burning, but a little bit better today. White count 5, hemoglobin and hematocrit 10 and 35, platelets 320,000. Creatinine is at 1.2. Her urine showed [id number]- count white blood cells, red blood cells, but also greater than 10 squamous cells and some yeast, so most likely UTI, even though it was not a great sample, but she is growing out gram-negative rods. She is symptomatic. I do not think we can get by without treating her in any case. ASSESSMENT: 1. Acute systolic heart failure exacerbation. She is improving. She is on p.o. diuretics. Cardiology and Pulmonary are following. 2. Acute on chronic hypercapnic respiratory failure. We will continue intermittent BiPAP. She is on 4 L and I think that is an acceptable level to go home. 3. Acute cystitis. She is on Rocephin. We are waiting on urine culture results. Once that is resolved, I think she should be able to go. 4. Atrial fibrillation. She is good rate controlled on her current medications. DISPOSITION: I think if she is stable tomorrow, she should be able to go home. We will continue to follow her closely. cc: Natanael Hutchins MD
[2019-03-22] MEDS: ROCEPHIN 1 GM in NS 50 ML IV SCH (17:49)
--- NOTE | 2019-03-22 21:29 | PULMONOLOGY PROGRESS NOTE ---
DATE: 03/22/2019 SUBJECTIVE: The patient is awake and alert. She reports her breathing has improved. She reports she was having significant bladder pain and did start passing some stool through her catheter. The catheter was removed, and she does report some stool with urination along with some pneumaturia. OBJECTIVE: General: Reveals an obese female resting comfortably in no distress. Vital signs: Blood pressure 107/60, heart rate 89, respiratory rate 20, oxygen saturation 95% on 3 L per nasal cannula. HEENT: Pupils are equal and reactive. Oropharynx is clear. Neck: Supple. Extremities: Reveal trace edema. LABORATORIES: Urinalysis yesterday revealed a large amount of urine leukocytes with too-numerous- to-count white blood cells, 3+ bacteria and triple phosphate present. It was grossly turbid. White blood count 5.39, hemoglobin 10.0 platelet count 320,000. Sodium 138, potassium 4.0, chloride 93, bicarbonate 38, BUN 50, creatinine 1.2. ASSESSMENT: A 63-year-old with: 1. Chronic obstructive pulmonary disease. 2. Chronic hypoxemic respiratory failure. 3. Acute hypoxemic respiratory failure. 4. Chronic hypercapnic respiratory failure. 5. Severe systolic heart failure. 6. Obstructive sleep apnea with prior noncompliance. 7. Recurrent colovesicular fistula, now with gross stool noted with urination and recurrent pneumaturia. DISCUSSION: A 63-year-old with problems outlined above. The patient has been diagnosed with a colovesicular fistula and followed by Dr. Gordon when she was in the hospital in January of 2018. She reports her symptoms were notable for pneumaturia at that time, but she did not have gross feces in her urine. She reports some improvement, and she can pass urine with removal of catheter. RECOMMENDATIONS: 1. Continue BiPAP at bedtime and p.r.n. 2. Diuresis as tolerated. 3. Long-term weight loss would be of great benefit. 4. Outpatient sleep study is needed to reinstitute BiPAP or CPAP. 5. The patient may require surgical evaluation for her colovesicular fistula if this becomes an ongoing issue, but she is a high risk candidate for her problems outlined above. cc: Jared Palafox MD
[2019-03-23] MEDS: DUONEB (A & A) INH PRN ×5 (03:34→19:25)
[2019-03-23 06:12] LABS: HEMOGLOBIN 10.4 g/dL (12.0-16.0); MCV 91.5 FL (81-99); MPV 11.1 FL (7.4-10.4); RDW 20.9 % (11.5-14.5)
[2019-03-23 06:19] LABS: HEMATOCRIT 36.5 % (37.0-47.0); MCH 26.1 PG (27-31); MCHC 28.5 g/dL (33-37); RBC 3.99 XMIL (4.2-5.4); WBC 5.51 X1000 (4.8-10.8)
[2019-03-23] MEDS: HUMALOG SUBQ SCH ×4 (06:21→20:35)
[2019-03-23 07:00] LABS: CALCIUM 9.5 mg/dL (8.8-10.2); CREATININE 1.4 mg/dL (0.5-0.9)
[2019-03-23] MEDS: ANORO ELLIPTA 62.5-25 MCG INH INH SCH (07:48)
[2019-03-23] MEDS: XANAX PO PRN ×2 (08:42→20:35)
[2019-03-23] MEDS: LANOXIN PO SCH (08:42)
[2019-03-23] MEDS: DEMADEX PO SCH (08:43)
[2019-03-23] MEDS: SYNTHROID PO SCH (08:43)
[2019-03-23] MEDS: MIRALAX PO SCH (08:43)
[2019-03-23] MEDS: ZAROXOLYN PO SCH (08:43)
[2019-03-23] MEDS: PRILOSEC PO SCH (08:43)
[2019-03-23] MEDS: ELIQUIS PO SCH ×2 (08:43→20:35)
[2019-03-23] MEDS: TOPROL XL PO SCH (08:43)
[2019-03-23] MEDS: COZAAR PO SCH (08:44)
--- NOTE | 2019-03-23 11:46 | Diag Imaging Result Doc PS360 ---
EXAM: KNEE 3 VIEWS RIGHT HISTORY: pain and swelling TECHNIQUE: Right knee, three views COMPARISON: None. FINDINGS: No fracture. No dislocation. There is bone spurring to the femoral condyles and tibial plateau. Mild joint space narrowing. Moderate atherosclerosis. IMPRESSION: Mild to moderate arthritis. Electronically signed by Maged Bullard 03/23/2019 11:44 AM
[2019-03-23] MEDS: ROCEPHIN 1 GM in NS 50 ML IV SCH (16:36)
--- NOTE | 2019-03-23 19:24 | PROGRESS NOTE ---
DATE: 03/23/2019 SUBJECTIVE: The patient is resting comfortably in bed. She complains of pain in her right knee, but she does state that she has arthritis. OBJECTIVE: Vital Signs: Temperature 98 degrees, blood pressure 85/49, heart rate 76, respirations 21, O2 saturation 95% on 4 L nasal cannula. General: This is a morbidly obese female lying in bed in no acute distress. Heart: S1, S2 normal. Lungs: Clear to auscultation bilaterally. Abdomen: Positive bowel sounds. Soft, nontender, nondistended. Extremities: 1+ edema. Neurologic: The patient is alert and oriented x3. LABS: White blood cell count 5.5, hemoglobin 7, hematocrit 36, platelets 321,000. Sodium 137, potassium 4, chloride 87, CO2 37, BUN 54, creatinine 1.4, glucose 154. ProBNP 2570. ASSESSMENT AND PLAN: 1. Acute on chronic hypoxemic and hypercapnic respiratory failure. We will continue with supplemental oxygen. 2. Acute on chronic systolic congestive heart failure exacerbation. Continue on torsemide and metolazone. 3. Morbid obesity. Aware. 4. Obstructive sleep apnea. Aware. 5. Acute kidney injury on chronic kidney disease. We will check urine studies. The patient is on diuretic therapy. 6. Colovesicular fistula. Aware. 7. Anemia. Stable. 8. Urinary tract infection secondary to Enterobacter aerogenes. Continue on Rocephin. 9. Chronic atrial fibrillation. The patient is rate controlled. Continue on digoxin, Toprol-XL, and Eliquis. 10. Hypothyroidism. Continue on Synthroid. 11. Disposition. The patient plans to go home with home health once she is medically stable. cc: Lupe Mack MD [facility]
[2019-03-23 21:31] LABS: URINE SOURCE CLEAN CATCH
[2019-03-23 21:35] LABS: BILIRUBIN URINE NEGATIVE (NEGATIVE); BLOOD URINE SMALL (NEGATIVE); COLOR YELLOW; GLUCOSE URINE NEGATIVE (NEGATIVE); KETONE URINE NEGATIVE (NEGATIVE); LEUKOCYTES URINE LARGE (NEGATIVE); NITRITE URINE NEGATIVE (NEGATIVE); PROTEIN URINE NEGATIVE (NEGATIVE); TURBIDITY URINE HAZY (CLEAR); UROBILINOGEN URINE 4 mg/dL (NORMAL)
[2019-03-23 21:42] LABS: UR EPITHELIAL CELLS <10 /HPF (<10); URINE BACTERIA 4+ /HPF; URINE RBC TNTC /HPF (<10); URINE WBC 20-40 /HPF (<10)
[2019-03-23 21:44] LABS: UR CREAT RANDOM 42.7 mg/dL (11-20); UR PROT RANDOM 21.2 mg/dL
[2019-03-23 21:56] LABS: URINE YEAST PRESENT
--- NOTE | 2019-03-23 22:20 | CARDIOLOGY PROGRESS NOTE ---
DATE: 03/23/2019 SUBJECTIVE: Ms. Flores reports no issues, no shortness of breath. PHYSICAL EXAMINATION: Vital Signs: Afebrile, heart rate 76, blood pressure 85/49. General: She is in no acute distress. Cardiovascular: She sounds to be in an irregularly irregular rhythm. She has no murmurs. She has no lower extremity edema. Chest: Exam sounds relatively clear with poor inspiratory effort. Abdomen: Soft, nontender. PERTINENT DATA: Her white count is 5.5, hematocrit 36, platelet count 321,000. Her sodium is 137, potassium 4, BUN 54, creatinine 1.4. Her proBNP is 2570. ASSESSMENT: Ms. Flores is a 63-year-old female with systolic heart failure. PLAN: She appears to be reasonably well diuresed. She continues on Eliquis for her atrial fibrillation. She is rate controlled. She is on digoxin, losartan, low dose metolazone, metoprolol, and torsemide orally. She seems to be adequately diuresed presently. I do not have any acute cardiovascular recommendations. cc: Sachin Maciel MD
--- NOTE | 2019-03-24 00:59 | PULMONOLOGY PROGRESS NOTE ---
DATE: 03/23/2019 SUBJECTIVE: The patient is awake, alert and conversant. She continues to have intermittent pneumaturia, but reports less stool in her urine. She denies shortness of breath. OBJECTIVE: Vital Signs: BP 99/48, heart rate 78, respiratory rate 20, oxygen saturation 92% on 3 L per nasal cannula. HEENT: Pupils are equal and reactive. Oropharynx appears clear. Neck: Supple. Chest: Reveals markedly diminished breath sounds bilaterally. Cardiac: S1, S2. Abdomen: Obese and soft. Extremities: Without edema. LABORATORY DATA: No new chest x-ray data. Microbiology is growing Enterobacter aerogenes from her urine. IMPRESSION: A 63-year-old with 1. Acute hypoxemic respiratory failure. 2. Chronic hypoxic respiratory failure. 3. Chronic obstructive pulmonary disease. 4. Chronic hypercapnic respiratory failure. 5. Severe systolic heart failure. 6. Obstructive sleep apnea with prior noncompliance. 7. Recurrent colovesicular fistula. 8. Urinary tract infection likely due to recurrent vesicular fistula. PLAN: 1. Continue BiPAP at bedtime and p.r.n. 2. Recommend outpatient sleep study. 3. Long-term weight loss recommended. 4. Consider surgical evaluation for colovesicular fistula, but she is a high risk candidate. cc: Jared Palafox MD
[2019-03-24] MEDS: HUMALOG SUBQ SCH ×4 (06:36→22:49)
[2019-03-24] MEDS: DUONEB (A & A) INH PRN ×5 (07:23→23:10)
[2019-03-24 07:43] LABS: HEMATOCRIT 37.6 % (37.0-47.0); HEMOGLOBIN 10.7 g/dL (12.0-16.0); MCH 25.8 PG (27-31); MCHC 28.5 g/dL (33-37); MCV 90.6 FL (81-99); RBC 4.15 XMIL (4.2-5.4); RDW 20.9 % (11.5-14.5); WBC 6.03 X1000 (4.8-10.8)
[2019-03-24 08:08] LABS: CALCIUM 9.4 mg/dL (8.8-10.2); CREATININE 1.3 mg/dL (0.5-0.9); POTASSIUM 3.9 mmol/L (3.5-5.1)
--- NOTE | 2019-03-24 08:17 | Diag Imaging Result Doc PS360 ---
EXAM: CHEST-1 VIEW INDICATION: pulmonary edema TECHNIQUE: One view COMPARISON: 03/22/2019 FINDINGS: There is a better inspiration as compared to the previous study. Pulmonary venous congestion and mild interstitial edema is approximately stable. There is stable cardiomegaly. IMPRESSION: Better inspiration but essentially stable chest, otherwise. Electronically signed by Tico Brown 03/24/2019 8:15 AM
[2019-03-24] MEDS: NORCO-5 PO PRN ×2 (09:54→22:51)
[2019-03-24] MEDS: XANAX PO PRN ×2 (10:00→22:51)
[2019-03-24] MEDS: MIRALAX PO SCH (10:01)
[2019-03-24] MEDS: DEMADEX PO SCH (10:01)
[2019-03-24] MEDS: LANOXIN PO SCH (10:02)
[2019-03-24] MEDS: ZAROXOLYN PO SCH (10:03)
[2019-03-24] MEDS: SYNTHROID PO SCH (10:04)
[2019-03-24] MEDS: PRILOSEC PO SCH (10:04)
[2019-03-24] MEDS: ELIQUIS PO SCH ×2 (10:04→22:49)
[2019-03-24] MEDS: TOPROL XL PO SCH (10:04)
[2019-03-24] MEDS: ANORO ELLIPTA 62.5-25 MCG INH INH SCH (10:59)
[2019-03-24] MEDS: COZAAR PO SCH (11:23)
--- NOTE | 2019-03-24 13:40 | Diag Imaging Result Doc PS360 ---
EXAM: CT ABDOMEN/PELVIS W/O CONTRAST 03/24/2019 HISTORY: colovesicular fistula TECHNIQUE: This exam was performed using automated exposure control, adjustment of mA or kV according to patient size, and/or use of iterative reconstruction technique. COMMENT: There are no previous abdominal studies available for comparison, where possible comparison is made with the thoracic study of 01/15/2018 and the pelvic examination of 01/13/2018. The pleural effusions which were present on the previous thoracic study have apparently resolved. There is residual bibasilar linear coarse opacity which may be due to fibrosis or atelectasis. There is a nodule, measuring over 7 mm, present in the right lower lobe on image five which is not clearly demonstrable on the previous examination. The liver, spleen, and left adrenal gland are stable in appearance. There is enlargement of the right adrenal gland with a CT density of -14 Hounsfield units. This was also present at the time the previous study and is probably due to an adenoma. There is no evidence of hydronephrosis or nephrolithiasis in either kidney. There is stool in the colon and numerous scattered diverticula are present in the colon. The small bowel is not distended. The stomach is not distended. There is no evidence of appendicitis or acute diverticulitis. There is an air-fluid level in the urinary bladder which may be due to recent instrumentation. There was also air in the bladder time the previous examination. The possibility of a colovesical fistula cannot be excluded. The regional skeleton is intact. IMPRESSION: Air in the bladder, which may be related to a colovesical fistula. Subcentimeter right lower lobe pulmonary nodule which was probably obscured by atelectasis on the previous examinations. Further follow-up may be desirable. Electronically signed by Vinayak Wilson 03/24/2019 1:38 PM
[2019-03-24] MEDS: ROCEPHIN 1 GM in NS 50 ML IV SCH (17:46)
--- NOTE | 2019-03-24 18:04 | PROGRESS NOTE ---
DATE: 03/24/2019 SUBJECTIVE: The patient complains of flank pain but states that it has resolved since she received pain medication. She has been ambulating with physical therapy today and yesterday. OBJECTIVE: Vital Signs: Temperature 97 degrees, blood pressure 109/52, heart rate 82, respirations 20, O2 saturation 99% on 3 L nasal cannula. Intake 750. General: This is a morbidly obese female, sitting at the edge of the bed, in no acute distress. Heart: S1, S2 normal. Lungs: Equal air entry bilaterally. No crackles. No rales. Abdomen: Positive bowel sounds. Soft, nontender, nondistended. Extremities: No edema. No cyanosis. Neurologic: The patient is alert and oriented x4. LABS: Hemoglobin 10, hematocrit 37, platelets 338,000. BUN 62, creatinine 1.3, sodium 139, potassium 3.9, chloride 91, CO2 36, glucose 136. CT of the abdomen and pelvis shows air in the bladder, likely related to a colovesical fistula. Subcentimeter right lower lobe pulmonary nodule. ASSESSMENT AND PLAN: 1. Acute on chronic hypoxemic and hypercapnic respiratory failure. The patient will continue with supplemental oxygen upon discharge. 2. Acute on chronic systolic congestive heart failure exacerbation. Stable. The patient is on furosemide and metolazone. 3. Obstructive sleep apnea. Aware. 4. Morbid obesity. Aware. 5. Acute kidney injury on chronic kidney disease. Slightly improved. We will continue to monitor the patient closely while on diuretic therapy. 6. Urinary tract infection secondary to Enterobacter aerogenes. The patient is currently on ceftriaxone. We will likely transition the patient to oral antibiotics upon discharge. 7. Chronic atrial fibrillation. Continue on digoxin, Toprol-XL, and Eliquis. 8. Hypothyroidism. Continue on Synthroid. 9. Colovesicular fistula. Aware. 10. Disposition. Will likely plan to send the patient home with home health tomorrow. cc: Lupe Mack MD MTDD
--- NOTE | 2019-03-24 20:07 | GENERAL SURGERY CONSULTATION ---
DATE: 03/24/2019 Ms. Flores is a pleasant, 63-year-old, female who was formerly employed at [employer], [place], [employer]. She was admitted on March 10 with shortness of breath and signs of congestive heart failure. She additionally has type 2 diabetes. Her other medical problems are hypertension and atrial fibrillation. INCOMPLETE REPORT -- DICTATION ENDS HERE cc: Rick Gustafson MD
--- NOTE | 2019-03-24 20:26 | GENERAL SURGERY CONSULTATION ---
DATE: 03/24/2019 HISTORY OF PRESENT ILLNESS: Ms. Flores is a pleasant 63-year-old female who was admitted on March 10 with shortness of breath. Her past history is pertinent for congestive heart failure, type 2 diabetes, COPD on home oxygen, hypertension, atrial fibrillation. I have been asked to see her because of gram-negative rods in her urine, and on questioning her, she has had pneumaturia for over a year and most recently has actually passed some stool in her urine. She denies any fever. Denies any ill consequences related to her fistula. She has never had any surgery except a section and a pilonidal cyst excision. MEDICATIONS: Listed. ALLERGIES: She has an allergy to Levaquin. FAMILY HISTORY: Pertinent for congestive heart failure and diabetes. SOCIAL HISTORY: She lives at home. She has a daughter living with her. She does use home oxygen and uses a walker at home. Denies any tobacco, alcohol or drug use. REVIEW OF SYSTEMS: As noted above. PHYSICAL EXAMINATION: Vital Signs: She is afebrile, heart rate 82, blood pressure 109/52. Neck: No cervical adenopathy. Respiratory: Distant breath sounds bilaterally. Heart: Irregular rate and rhythm. Abdomen: Soft. Extremities: No pedal pulses are present. Neurologic: She is awake and alert. DIAGNOSTICS/LABS: White count is 6000, hemoglobin 10.7, BUN 62, creatinine 1.3. 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 She has not had any fever. She additionally has multiple medical problems, which really contraindicate any kind of surgical repair. We discussed that. She does not want any surgery since she is not having any ill effects from her colovesical fistula, and I agree with that. I would simply continue with conservative therapy. cc: Rick Gustafson MD
[2019-03-24] MEDS: DESYREL PO PRN (22:50)
[2019-03-25] MEDS: DUONEB (A & A) INH PRN (03:05)
[2019-03-25] MEDS: NORCO-5 PO PRN (05:46)
[2019-03-25] MEDS: TYLENOL PO PRN (05:47)
[2019-03-25] MEDS: HUMALOG SUBQ SCH ×3 (06:51→13:00)
[2019-03-25 07:37] LABS: ALBUMIN 3.7 g/dL (3.5-5.0); CREATININE 1.5 mg/dL (0.5-0.9); PHOSPHORUS 5.2 mg/dL (2.7-4.5); POTASSIUM 3.8 mmol/L (3.5-5.1)
[2019-03-25 08:22] LABS: HEMATOCRIT 36.5 % (37.0-47.0); HEMOGLOBIN 10.5 g/dL (12.0-16.0); MCH 25.9 PG (27-31); MCHC 28.8 g/dL (33-37); MCV 90.1 FL (81-99); MPV 11.2 FL (7.4-10.4); RBC 4.05 XMIL (4.2-5.4); RDW 20.6 % (11.5-14.5); WBC 5.74 X1000 (4.8-10.8)
[2019-03-25] MEDS: COZAAR PO SCH (10:17)
[2019-03-25] MEDS: DEMADEX PO SCH (10:18)
[2019-03-25] MEDS: ZAROXOLYN PO SCH (10:18)
[2019-03-25] MEDS: MIRALAX PO SCH (10:19)
[2019-03-25] MEDS: PRILOSEC PO SCH (10:19)
[2019-03-25] MEDS: TOPROL XL PO SCH ×2 (10:19→10:20)
[2019-03-25] MEDS: SYNTHROID PO SCH (10:19)
[2019-03-25] MEDS: LANOXIN PO SCH (10:20)
[2019-03-25] MEDS: ELIQUIS PO SCH (10:20)
[2019-03-25 13:06] VITALS: BP 105/63
== END 2019-03-25 14:02 | disposition home or self-care (01) | DRG 291 ==
LOC: ED 22:00 → SUATTDRO 03-10 05:17 → 3S 03-10 05:17 → 3N 03-23 23:50
PROVIDERS: ATTEND Internal Medicine
CPT/HCPCS: 51702; 71010; 71045; 73562; 74176; 80048; 80053; 80069; 81001; 82040; 82550; 82570; 82805; 82948; 83036; 83735; 83880; 83935; 84156; 84300; 84436; 84443; 84484; 84540; 85025; 85027; 85610; 85730; 87077; 87088; 87186; 93005; 93010; 93306; 94640; 94660; 94761; 94762; 96374; 96375; 97110; 97116; 97162; 97530; 99285; A9270; C8929; J0696; J1160; J1250; J1644; J1650; J1815; J1940; J2405; Q9957; XXXXX